=== PATIENT | male | born 1970 | race Caucasian/White ===

== ENCOUNTER → 2016-07-15 | Outpatient (CLI) | payer MEDICARE, BC ==
[2016-07-15 08:39] LABS: Basophils % (A) 0 %; CH 33.4; CHCM 33.5; Eosinophils # (A) 0.1 k/uL (0-0.7); Eosinophils % (A) 1 %; HCT 43.8 % (39.0-53.0); HGB 14.9 gm/dL (13.0-17.5); Luc # (Auto) 0.14; Luc % (Auto) 3; Lymphocytes # (A) 1.8 k/uL (1.0-4.8); Lymphocytes % (A) 40 %; MCV 100.1 fL (80.0-100.0); Macrocytosis Slight; Monocytes # (A) 0.3 k/uL (0-1.0); Monocytes % (A) 7 %; Neutrophils # (A) 2.3 k/uL (1.3-7.7); Neutrophils % (A) 49 %; RBC 4.37 m/uL (4.30-5.90); RDW 14.4 % (11.5-15.5); WBC 4.6 k/uL (3.8-10.6); WBC (Perox) 4.64
[2016-07-15 08:48] LABS: ALT 34 U/L (21-72); AST 39 U/L (17-59); Alkaline Phosphatase 178 U/L (38-126); Anion Gap 10 mmol/L; Blood Urea Nitrogen 9 mg/dL (9-20); Calcium 9.5 mg/dL (8.4-10.2); Carbon Dioxide 29 mmol/L (22-30); Chloride 104 mmol/L (98-107); Cholesterol 180 mg/dL (<200); Glucose 92 mg/dL (74-99); HDL Cholesterol 69 mg/dL (40-60); Non-African American GFR(MDRD) >60 (>60 ml/min/1.73 sqM); Potassium 4.6 mmol/L (3.5-5.1); Sodium 143 mmol/L (137-145); Total Bilirubin 0.6 mg/dL (0.2-1.3); Total Protein 8.3 g/dL (6.3-8.2); Triglycerides 182 mg/dL (<150)
[2016-07-17 14:45] LABS: LOG HIV Copies/mL <1.60 (<1.60)
== END | disposition home or self-care (01) ==
LOC: LABWHC1 08:02
PROVIDERS: ATTEND Internal Medicine Infectious Disease
DX: B20 Human immunodeficiency virus [HIV] disease (principal); R53.83 Other fatigue
CPT/HCPCS: 36415; 80053; 80061; 84443; 85025; 86360; 87536

== ENCOUNTER → 2016-11-28 | Outpatient (CLI) | payer MEDICARE, BC ==
[2016-11-28 10:43] LABS: Basophils # (A) 0.1 k/uL (0-0.2); Basophils % (A) 1 %; CHCM 33.3; Eosinophils # (A) 0.1 k/uL (0-0.7); Eosinophils % (A) 2 %; HCT 45.5 % (39.0-53.0); HDW 2.93; HGB 15.4 gm/dL (13.0-17.5); Luc % (Auto) 3; Lymphocytes # (A) 2.1 k/uL (1.0-4.8); Lymphocytes % (A) 31 %; MCH 33.5 pg (25.0-35.0); MCHC 33.7 g/dL (31.0-37.0); MCV 99.4 fL (80.0-100.0); Mean Platelet Volume 6.9; Monocytes # (A) 0.5 k/uL (0-1.0); Monocytes % (A) 7 %; Neutrophils # (A) 3.9 k/uL (1.3-7.7); Neutrophils % (A) 57 %; RBC 4.58 m/uL (4.30-5.90); RDW 14.1 % (11.5-15.5); WBC 6.8 k/uL (3.8-10.6); WBC (Perox) 6.53
[2016-11-28 12:31] LABS: ALT 45 U/L (21-72); AST 36 U/L (17-59); Alkaline Phosphatase 176 U/L (38-126); Anion Gap 10 mmol/L; Blood Urea Nitrogen 8 mg/dL (9-20); Calcium 9.6 mg/dL (8.4-10.2); Carbon Dioxide 27 mmol/L (22-30); Chloride 106 mmol/L (98-107); Glucose 69 mg/dL (74-99); Non-African American GFR(MDRD) >60 (>60 ml/min/1.73 sqM); Potassium 4.8 mmol/L (3.5-5.1); Sodium 143 mmol/L (137-145); Total Bilirubin 0.3 mg/dL (0.2-1.3); Total Protein 7.8 g/dL (6.3-8.2)
[2016-11-28 12:56] LABS: Prostate Specific Antigen 3.61 ng/mL (0.00-4.00)
[2016-12-02 17:26] LABS: LOG HIV Copies/mL <1.60 (<1.60)
== END | disposition home or self-care (01) ==
LOC: LABWHC1 10:02
PROVIDERS: ATTEND Internal Medicine Infectious Disease
DX: B20 Human immunodeficiency virus [HIV] disease (principal); N40.1 Benign prostatic hyperplasia with lower urinary tract symptoms
CPT/HCPCS: 36415; 80053; 84153; 85025; 86360; 87536

== ENCOUNTER → 2017-04-28 | Outpatient (CLI) | payer MEDICARE, BC ==
[2017-04-28 11:21] LABS: ALT 36 U/L (21-72); AST 35 U/L (17-59); Albumin 4.7 g/dL (3.5-5.0); Alkaline Phosphatase 202 U/L (38-126); Anion Gap 13 mmol/L; Blood Urea Nitrogen 7 mg/dL (9-20); Calcium 10.1 mg/dL (8.4-10.2); Carbon Dioxide 28 mmol/L (22-30); Chloride 105 mmol/L (98-107); Glucose 93 mg/dL (74-99); Potassium 4.9 mmol/L (3.5-5.1); Sodium 146 mmol/L (137-145); Total Bilirubin 0.3 mg/dL (0.2-1.3); Total Protein 8.2 g/dL (6.3-8.2)
[2017-04-28 11:31] LABS: Basophils % (A) 1 %; Eosinophils # (A) 0.1 k/uL (0-0.7); Eosinophils % (A) 1 %; HCT 45.1 % (39.0-53.0); HGB 14.8 gm/dL (13.0-17.5); Lymphocytes # (A) 1.9 k/uL (1.0-4.8); Lymphocytes % (A) 24 %; MCH 32.9 pg (25.0-35.0); MCHC 32.9 g/dL (31.0-37.0); MCV 100.1 fL (80.0-100.0); Macrocytosis Slight; Mean Platelet Volume 6.8; Monocytes # (A) 0.4 k/uL (0-1.0); Monocytes % (A) 5 %; Neutrophils # (A) 5.5 k/uL (1.3-7.7); Neutrophils % (A) 68 %; Platelet Count 393 k/uL (150-450); RBC 4.51 m/uL (4.30-5.90); WBC 8.1 k/uL (3.8-10.6)
[2017-04-29 10:41] LABS: T4/T8 Ratio (CD4:CD8) 0.8 (1.0-3.7)
[2017-04-29 13:49] LABS: HIV-1 RNA Not detected (Not detected); HIV-1 RNA, Quant <40 Copies/mL (<40)
== END | disposition home or self-care (01) ==
LOC: LABWHC1 10:48
PROVIDERS: ATTEND Internal Medicine Infectious Disease
DX: B20 Human immunodeficiency virus [HIV] disease (principal)
CPT/HCPCS: 36415; 80053; 85025; 86360; 87536

== ENCOUNTER → 2017-10-27 | Outpatient (CLI) | payer MEDICARE, BC ==
[2017-10-27 09:38] LABS: ALT 55 U/L (21-72); AST 50 U/L (17-59); Albumin 4.2 g/dL (3.5-5.0); Alkaline Phosphatase 149 U/L (38-126); Anion Gap 5 mmol/L; Blood Urea Nitrogen 10 mg/dL (9-20); Calcium 9.4 mg/dL (8.4-10.2); Carbon Dioxide 28 mmol/L (22-30); Chloride 106 mmol/L (98-107); Glucose 92 mg/dL (74-99); Potassium 4.6 mmol/L (3.5-5.1); Sodium 139 mmol/L (137-145); Total Bilirubin 0.3 mg/dL (0.2-1.3); Total Protein 7.3 g/dL (6.3-8.2)
[2017-10-27 10:21] LABS: Basophils % (A) 0 %; Eosinophils # (A) 0.1 k/uL (0-0.7); Eosinophils % (A) 1 %; HCT 43.7 % (39.0-53.0); HGB 14.7 gm/dL (13.0-17.5); Lymphocytes # (A) 1.7 k/uL (1.0-4.8); Lymphocytes % (A) 20 %; MCH 34.2 pg (25.0-35.0); MCHC 33.6 g/dL (31.0-37.0); MCV 101.8 fL (80.0-100.0); Macrocytosis Slight; Mean Platelet Volume 7.7; Monocytes # (A) 0.5 k/uL (0-1.0); Monocytes % (A) 6 %; Neutrophils % (A) 72 %; Platelet Count 250 k/uL (150-450); RBC 4.29 m/uL (4.30-5.90); RDW 13.2 % (11.5-15.5); WBC 8.4 k/uL (3.8-10.6)
[2017-10-28 10:34] LABS: T4/T8 Ratio (CD4:CD8) 0.5 (1.0-3.7)
[2017-10-30 08:48] LABS: HIV-1 RNA Not detected (Not detected); HIV-1 RNA, Quant <40 Copies/mL (<40)
== END | disposition home or self-care (01) ==
LOC: LABWHC1 08:56
PROVIDERS: ATTEND Internal Medicine Infectious Disease
DX: B20 Human immunodeficiency virus [HIV] disease (principal)
CPT/HCPCS: 36415; 80053; 85025; 86360; 87536

== ENCOUNTER → 2018-04-20 | Outpatient (CLI) | payer MEDICARE, BC ==
[2018-04-20 08:45] LABS: Basophils # (A) 0.1 k/uL (0-0.2); Basophils % (A) 1 %; Eosinophils # (A) 0.3 k/uL (0-0.7); Eosinophils % (A) 4 %; HCT 44.3 % (39.0-53.0); HGB 15.1 gm/dL (13.0-17.5); Lymphocytes # (A) 2.3 k/uL (1.0-4.8); Lymphocytes % (A) 37 %; MCH 34.5 pg (25.0-35.0); MCV 101.6 fL (80.0-100.0); Macrocytosis Slight; Mean Platelet Volume 7.6; Monocytes # (A) 0.4 k/uL (0-1.0); Monocytes % (A) 6 %; Neutrophils # (A) 3.1 k/uL (1.3-7.7); Neutrophils % (A) 50 %; Platelet Count 249 k/uL (150-450); RBC 4.36 m/uL (4.30-5.90); RDW 12.9 % (11.5-15.5); WBC 6.3 k/uL (3.8-10.6)
[2018-04-20 17:38] LABS: Albumin 4.5 g/dL (3.80-4.90); Albumin/Globulin Ratio 1.8 (1.20-2.10); Anion Gap 8.8 mmol/L (4.00-12.00); Calcium 9.3 mg/dL (8.7-10.3); Carbon Dioxide 28.2 mmol/L (21.6-31.8); Globulin 2.5 g/dL (1.6-3.3); Potassium 4.4 mmol/L (3.5-5.5); Total Bilirubin 0.3 mg/dL (0.2-1.2)
[2018-04-21 10:38] LABS: T4/T8 Ratio (CD4:CD8) 0.7 (1.0-3.7)
[2018-04-22 16:56] LABS: HIV-1 RNA Not detected (Not detected); HIV-1 RNA, Quant <40 Copies/mL (<40)
== END ==
LOC: LABWHC1 07:51
PROVIDERS: ATTEND Internal Medicine Infectious Disease
DX: B20 Human immunodeficiency virus [HIV] disease (principal)
CPT/HCPCS: 36415; 80053; 85025; 86360; 87536

== ENCOUNTER → 2018-11-05 | Outpatient (CLI) | payer MEDICARE, BC ==
[2018-11-05 11:01] LABS: Basophils % (A) 0 %; Eosinophils # (A) 0.2 k/uL (0-0.7); Eosinophils % (A) 2 %; HCT 44.2 % (39.0-53.0); HGB 14.1 gm/dL (13.0-17.5); Lymphocytes % (A) 23 %; MCH 32.1 pg (25.0-35.0); MCHC 31.9 g/dL (31.0-37.0); MCV 100.9 fL (80.0-100.0); Macrocytosis Slight; Monocytes # (A) 0.4 k/uL (0-1.0); Monocytes % (A) 5 %; Neutrophils # (A) 5.9 k/uL (1.3-7.7); Neutrophils % (A) 68 %; Platelet Count 363 k/uL (150-450); RBC 4.39 m/uL (4.30-5.90); RDW 13.4 % (11.5-15.5); WBC 8.6 k/uL (3.8-10.6)
[2018-11-05 16:13] LABS: African American GFR (CKD) 120.7 (60.0-200.0); Albumin 4.2 g/dL (3.80-4.90); Albumin/Globulin Ratio 1.45 (1.60-3.17); Anion Gap 9.6 mmol/L (4.00-12.00); BUN/Creat Ratio 8.75 Ratio (12.00-20.00); Calcium 9.3 mg/dL (8.7-10.3); Carbon Dioxide 25.4 mmol/L (21.6-31.8); Globulin 2.9 g/dL (1.6-3.3); Non-African American GFR(CKD) 104.2 (60.0-200.0); Potassium 4.5 mmol/L (3.5-5.5); Total Bilirubin 0.2 mg/dL (0.3-1.2); Total Protein 7.1 g/dL (6.2-8.2)
[2018-11-06 10:55] LABS: T4/T8 Ratio (CD4:CD8) 0.6 (1.0-3.7)
[2018-11-09 15:54] LABS: HIV-1 RNA Not detected (Not detected); HIV-1 RNA, Quant <40 Copies/mL (<40)
== END | disposition home or self-care (01) ==
LOC: LABWHC1 10:03
PROVIDERS: ATTEND Internal Medicine Infectious Disease
DX: B20 Human immunodeficiency virus [HIV] disease (principal)
CPT/HCPCS: 36415; 80053; 85025; 86360; 87536

== ENCOUNTER 2019-03-16 19:08 | Emergency (ER) | payer MEDICARE, BC ==
[2019-03-16] MEDS ORDERED: HYDROmorphone 0.5 MG/0.5 ML SYRINGE IVP STA (19:19)
[2019-03-16 20:05] LABS: African American GFR (CKD) >90 (>60 ml/min/1.73 sqM); Anion Gap 11 mmol/L; Blood Urea Nitrogen 18 mg/dL (9-20); Calcium 9.8 mg/dL (8.4-10.2); Carbon Dioxide 22 mmol/L (22-30); Chloride 107 mmol/L (98-107); Glucose 110 mg/dL (74-99); Non-African American GFR(CKD) >90 (>60 ml/min/1.73 sqM); Sodium 140 mmol/L (137-145)
--- NOTE | 2019-03-16 20:06 | XR ---
PROCEDURE: XR lumbar spine - 3V DATE AND TIME: 03/16/2019 7:29 PM CLINICAL INDICATION: Pain after fall TECHNIQUE: Department protocol COMPARISON: None FINDINGS: There is no fracture or malalignment. [id number] lumbar spondylosis changes noted. Th e soft tissues are unremarkable. IMPRESSION: No acute radiographic process.
--- NOTE | 2019-03-16 20:17 | ED ---
General Adult HPI - General Chief complaint: Fall Stated complaint: back injury Time Seen by Provider: 03/16/19 19:15 Source: patient Mode of arrival: wheelchair Limitations: no limitations - History of Present Illness Initial comments: 49-year-old presents today for chief complaint of fall with left flank pain. Patient states that he was at work carrying approximately 50 pounds of goods when he felt after tripping hitting his left side of his back on a pallet. Patient states he has pain at the top of the left pelvis and of the low back. Patient denies any loss of bowel bladder control urinary retention loss of sensation or radiation of the pain down the left leg. Patient states his bilateral hip prosthesis. Patient denies any pain at the knee he states he is able to weight-bear and ambulate without difficulty however this increases the pain in the low back. Patient denies any right-sided back pain. She denies any loss of consciousness injury to the head and neck or upper back. Patient denies any numbness tingling of the lower extremities denies any other complaints or areas of injury. Patient denies any lacerations or abrasions. - Related Data Home Medications Medication Instructions Recorded Confirmed ALPRAZolam [Xanax] 0.25 mg PO TID PRN 06/17/15 03/12/17 Carisoprodol [Soma] 350 mg PO TID 06/17/15 03/12/17 Diclofenac Sodium [Voltaren] 75 mg PO BID 06/17/15 03/12/17 Emtricitabine [Emtriva] 200 mg PO DAILY 06/17/15 03/12/17 HYDROcodone/APAP 10-325MG [[place] 1 tab PO Q8HR PRN 06/17/15 03/12/17 10-325] Montelukast [Singulair] 10 mg PO HS 06/17/15 03/12/17 Nevirapine [Nevirapine ER] 400 mg PO DAILY 06/17/15 03/12/17 Omeprazole 40 mg PO DAILY 06/17/15 03/12/17 Pravastatin Sodium 40 mg PO DAILY 06/17/15 03/12/17 Tenofovir Disoproxil Fumarate 300 mg PO DAILY 06/17/15 03/12/17 [Viread] Previous Rx's Medication Instructions Recorded Azithromycin [Zithromax Z-pack] 250 mg PO DIRECTED #6 tab 06/17/15 Cyclobenzaprine [Flexeril] 10 mg PO TID #12 tab 03/12/17 Baclofen 10 mg PO TID 5 Days #15 tab 03/16/19 Allergies Allergy/AdvReac Type Severity Reaction Status Date / Time Penicillins Allergy Rash/Hives Verified 03/16/19 19:13 Review of Systems ROS Statement: Those systems with pertinent positive or pertinent negative responses have been documented in the HPI. ROS Other: All systems not noted in ROS Statement are negative. Past Medical History Past Medical History: No Reported History Additional Past Medical History / Comment(s): HIV History of Any Multi-Drug Resistant Organisms: None Reported Past Surgical History: Joint Replacement, Orthopedic Surgery Additional Past Surgical History / Comment(s): bilateral hip replacements Past Psychological History: Anxiety, Depression Smoking Status: Current every day smoker Past Alcohol Use History: Occasional Past Drug Use History: None Reported General Exam - General Exam Comments Initial Comments: General: The patient is awake and alert, in no distress, and does not appear acutely ill. Eye: +3 mm pupils are equal, round and reactive to light, extra-ocular movements are intact. No nystagmus. There is normal conjunctiva bilaterally. No signs of icterus. Ears, nose, mouth and throat: There are moist mucous membranes and no oral lesions. Neck: The neck is supple, there is no tenderness or JVD. Cardiovascular: There is a regular rate and rhythm. No murmur, rub or gallop is appreciated. Respiratory: Lungs are clear to auscultation, respirations are non-labored, breath sounds are equal. No wheezes, stridor, rales, or rhonchi. Gastrointestinal: Soft, non-distended, non-tender abdomen without masses or organomegaly noted. There is no rebound or guarding present. No CVA tenderness. Musculoskeletal: Upon inspection of the lumbar spine there is erythema of the left paravertebral soft tissues with superficial abrasion and small amount of ecchymosis. Normal ROM of the hips b/l, able to weight bear and ambulate. Strength 5/5. Sensation intact of the LE b/l Tender to palpation of the paravertebral tissues, very mild midline tenderness to palpation of upper lumbar spine, no thoracic orcervical tenderness. Tenderness of the posterior iliac crest . DP pulses equal bilaterally 2+. Neurological: A&O x 3. CN II-XII intact grossly, There are no obvious motor or sensory deficits. Coordination appears grossly intact. Speech is normal. Skin: Skin is warm and dry and no rashes or lesions are noted. Psychiatric: Cooperative, appropriate mood & affect, normal judgment. Limitations: no limitations Course Vital Signs 03/16/19 03/16/19 19:10 22:13 Temperature 98.1 F 98.0 F Pulse Rate 116 H 97 Respiratory 18 16 Rate Blood Pressure 134/56 133/73 O2 Sat by Pulse 95 98 Oximetry Medical Decision Making - Medical Decision Making 48yo male presenting for left flank pain after a fall. CT abdomen and pelvis negative for acute process. There is no evidence of displacement of the bilateral hip prosthesis. Patient is able to weight-bear and ambulate. Patient has pain over the posterior iliac crests otherwise no tenderness to palpation of the length of the femur of the knee. Patient neurovascularly intact pain controlled in the emergency department patient states he is feeling much better and at this time after discussing case with attending provider I think the patient is stable for discharge with outpatient primary care follow-up. Patient is given a care plan and discharge at this time. - Lab Data Result diagrams: 03/16/19 19:44 Lab Results 03/16/19 Range/Units 19:44 Sodium 140 (137-145) mmol/L Potassium 4.0 (3.5-5.1) mmol/L Chloride 107 (98-107) mmol/L Carbon Dioxide 22 (22-30) mmol/L Anion Gap 11 mmol/L BUN 18 (9-20) mg/dL Creatinine 0.76 (0.66-1.25) mg/dL Est GFR (CKD-EPI)AfAm >90 (>60 ml/min/1.73 sqM) Est GFR (CKD-EPI)NonAf >90 (>60 ml/min/1.73 sqM) Glucose 110 H (74-99) mg/dL Calcium 9.8 (8.4-10.2) mg/dL Disposition Clinical Impression: Low back pain, Fall Disposition: HOME SELF-CARE Condition: Good Instructions (If sedation given, give patient instructions): Back Pain (ED) Prescriptions: Baclofen 10 mg PO TID 5 Days #15 tab Is patient prescribed a controlled substance at d/c from ED?: No Referrals: Navin Yun MD [Primary Care Provider] - 1-2 days Time of Disposition: 21:50
[2019-03-16] MEDS ORDERED: MORPHINE SULFATE 4 MG/ML SYRINGE IVP STA (21:39)
[2019-03-16] MEDS ORDERED: ONDANSETRON 4 MG/2 ML VIAL IVP STA (21:40)
--- NOTE | 2019-03-16 21:48 | CT ---
EXAMINATION TYPE: CT abdomen pelvis w con DATE OF EXAM: 03/16/2019 COMPARISON: None HISTORY: Left side flank pain after fall with 50lbs. CT DLP: 725.1 mGycm Automated exposure control for dose reduction was used. TECHNIQUE: Helical acquisition of images was performed from the lung bases through the pelvis. CONTRAST: Performed without Oral Contrast and with IV Contrast, patient injected with 100ml mL of Iso nathalie 300. FINDINGS: LUNG BASES: No significant abnormality is appreciated. LIVER/GB: No significant abnormality is appreciated. PANCREAS: No significant abnormality is seen. SPLEEN: No significant abnormality is seen. ADRENALS: No significant abnormality is seen. KIDNEYS: No hydronephrosis or calcification, and no other focal findings. The upper and lower collect ing systems are unremarkable. FREE AIR: No free air is visualized. No peritoneal fluid. RETROPERITONEAL ADENOPATHY: None visualized REPRODUCTIVE ORGANS: No significant abnormality is seen URINARY BLADDER: No significant abnormality is seen. PELVIC ADENOPATHY: None visualized. OSSEOUS STRUCTURES: No significant abnormality is seen. BOWEL: No significant abnormality is seen. Bowel obstruction. No diverticulitis. No herniation. OTHER: No acute vascular findings. IMPRESSION: NEGATIVE EXAMINATION.
[2019-03-16 22:19] VITALS: BP 133/73; PULSE 97; RESP 16; TEMP 98
== END 2019-03-16 22:19 | disposition home or self-care (01) ==
LOC: EC 19:08
DX: M54.5 Low back pain (principal); F41.9 Anxiety disorder, unspecified; F32.9 Major depressive disorder, single episode, unspecified; F17.200 Nicotine dependence, unspecified, uncomplicated; Z21 Asymptomatic human immunodeficiency virus [HIV] infection status; Z79.899 Other long term (current) drug therapy; Z88.0 Allergy status to penicillin; Z96.643 Presence of artificial hip joint, bilateral; W01.198A Fall on same level from slipping, tripping and stumbling with subsequent striking against other object, initial encounter
CPT/HCPCS: 36415; 80048; 72100; 74177; 99284; 96374; 96375 ×2; J2270; J2405; J1170; Q9967

== ENCOUNTER → 2019-05-07 | Outpatient (CLI) | payer MEDICARE, BC ==
--- NOTE | 2019-05-07 14:10 | XR ---
Lumbar spine HISTORY: Back pain 3 views of the lumbar spine correlated prior exam 03/16/2019 There is no significant interval change. Mild spinal curvature may be positional. There is mild spond ylosis. Minimal retrolisthesis grade 1 suspected L3-4. Loss of disc height at intervertebral levels L 3-4, L5-S1. Sclerosis present in the posterior elements. Postop changes are noted to the hips. Questi on vacuum phenomenon L5-S1. IMPRESSION: Degenerative disc disease and facet arthropathy.
--- NOTE | 2019-05-07 14:15 | XR ---
AP pelvis and right hip HISTORY: Lump, palpable mass right lateral hip, chronic back pain Frontal view of the pelvis submitted, 2 views of the right hip Patient is status post bilateral hip arthroplasties. Extensive heterotopic new bone formation is pres ent about the right hip. Lucency is present about the acetabular component. Vascular calcifications a re noted incidentally. Alignment is maintained. No acute fracture or dislocation. IMPRESSION: Heterotopic new bone formation may be related to patient's palpable abnormality. Postop suellen kelley. Correlate for possible right hip loosening, particle disease
== END | disposition home or self-care (01) ==
LOC: RADXRMAIN 10:14
PROVIDERS: ATTEND Chiropractor
DX: M51.36 Other intervertebral disc degeneration, lumbar region (principal); M46.96 Unspecified inflammatory spondylopathy, lumbar region; M61.552 Other ossification of muscle, left thigh; Z98.890 Other specified postprocedural states
CPT/HCPCS: 72100; 72170; 73502

== ENCOUNTER → 2019-06-04 | Outpatient (CLI) | payer MEDICARE, BC ==
[2019-06-04 10:37] LABS: Basophils % (A) 0 %; Eosinophils # (A) 0.3 k/uL (0-0.7); Eosinophils % (A) 3 %; HCT 43.7 % (39.0-53.0); HGB 14.8 gm/dL (13.0-17.5); Lymphocytes # (A) 2.5 k/uL (1.0-4.8); Lymphocytes % (A) 30 %; MCH 33.5 pg (25.0-35.0); MCHC 33.9 g/dL (31.0-37.0); MCV 98.8 fL (80.0-100.0); Mean Platelet Volume 7.6; Monocytes # (A) 0.4 k/uL (0-1.0); Monocytes % (A) 5 %; Neutrophils # (A) 4.9 k/uL (1.3-7.7); Neutrophils % (A) 59 %; Platelet Count 275 k/uL (150-450); RBC 4.43 m/uL (4.30-5.90); RDW 13.4 % (11.5-15.5); WBC 8.3 k/uL (3.8-10.6)
[2019-06-04 16:21] LABS: Albumin 4.9 g/dL (3.80-4.90); Albumin/Globulin Ratio 1.69 (1.60-3.17); Anion Gap 5.4 mmol/L (4.00-12.00); BUN/Creat Ratio 13.33 Ratio (12.00-20.00); Calcium 9.6 mg/dL (8.7-10.3); Carbon Dioxide 26.6 mmol/L (21.6-31.8); Globulin 2.9 g/dL (1.6-3.3); Non-African American GFR(CKD) 99.2 (60.0-200.0); Potassium 4.8 mmol/L (3.5-5.5); Total Bilirubin 0.4 mg/dL (0.3-1.2); Total Protein 7.8 g/dL (6.2-8.2)
[2019-06-05 08:09] LABS: T4/T8 Ratio (CD4:CD8) 0.6 (1.0-3.7)
[2019-06-07 15:49] LABS: HIV-1 RNA DETECTED (Not detected); HIV-1 RNA, Quant <40 Copies/mL (<40)
== END | disposition home or self-care (01) ==
LOC: LABWHC1 09:55
PROVIDERS: ATTEND Internal Medicine Infectious Disease
DX: B20 Human immunodeficiency virus [HIV] disease (principal); Z88.0 Allergy status to penicillin; Z88.5 Allergy status to narcotic agent
CPT/HCPCS: 36415; 80053; 85025; 86360; 87536

== ENCOUNTER 2019-07-10 17:25 | Emergency (ER) | payer MEDICARE, BC ==
[2019-07-10 17:29] VITALS: BP 165/92; PULSE 111; RESP 16; TEMP 98.2
--- NOTE | 2019-07-10 17:55 | ED ---
Upper Extremity HPI - General Chief Complaint: Extremity Injury, Upper Stated Complaint: hand injury Time Seen by Provider: 07/10/19 17:35 Source: patient, RN notes reviewed, old records reviewed Mode of arrival: ambulatory Limitations: no limitations - History of Present Illness Initial Comments: Patient's 49-year-old male presents emergency room today with left fifth digit injury after jumping from a truck bed landing on his left hand. Patient reports he initially thought it was a sprain but is having increasing pain over his fifth digit. He reports that the incident happened on Friday and waited till today Friday to come to the emergency department. His right-handed. - Related Data Home Medications Medication Instructions Recorded Confirmed ALPRAZolam [Xanax] 0.25 mg PO TID PRN 06/17/15 03/12/17 Carisoprodol [Soma] 350 mg PO TID 06/17/15 03/12/17 Diclofenac Sodium [Voltaren] 75 mg PO BID 06/17/15 03/12/17 Emtricitabine [Emtriva] 200 mg PO DAILY 06/17/15 03/12/17 HYDROcodone/APAP 10-325MG [[place] 1 tab PO Q8HR PRN 06/17/15 03/12/17 10-325] Montelukast [Singulair] 10 mg PO HS 06/17/15 03/12/17 Nevirapine [Nevirapine ER] 400 mg PO DAILY 06/17/15 03/12/17 Omeprazole 40 mg PO DAILY 06/17/15 03/12/17 Pravastatin Sodium 40 mg PO DAILY 06/17/15 03/12/17 Tenofovir Disoproxil Fumarate 300 mg PO DAILY 06/17/15 03/12/17 [Viread] Previous Rx's Medication Instructions Recorded Azithromycin [Zithromax Z-pack] 250 mg PO DIRECTED #6 tab 06/17/15 Cyclobenzaprine [Flexeril] 10 mg PO TID #12 tab 03/12/17 Baclofen 10 mg PO TID 5 Days #15 tab 03/16/19 Ibuprofen [Motrin] 600 mg PO Q8HR PRN #20 tab 07/10/19 Allergies Allergy/AdvReac Type Severity Reaction Status Date / Time Penicillins Allergy Rash/Hives Verified 07/10/19 17:29 Review of Systems ROS Statement: Those systems with pertinent positive or pertinent negative responses have been documented in the HPI. ROS Other: All systems not noted in ROS Statement are negative. Past Medical History Past Medical History: No Reported History Additional Past Medical History / Comment(s): HIV, History of Any Multi-Drug Resistant Organisms: None Reported Past Surgical History: Joint Replacement, Orthopedic Surgery Additional Past Surgical History / Comment(s): bilateral hip replacements, Past Psychological History: Anxiety, Depression Smoking Status: Current every day smoker Past Alcohol Use History: Occasional Past Drug Use History: None Reported General Exam - General Exam Comments Initial Comments: Patient is a 49-year-old male who presents emergency department today for evaluation for concern for left fifth digit injury. She reports that he jumped off of the truck bed and landed on his left hand. He has some bruising and swelling and pain with range of motion. An x-ray was completed and negative for any acute fracture. Discussed likely sprain. Patient was given a finger splint and advised to rest ice and elevate acute inflammatory mass or pain. Limitations: no limitations General appearance: alert, in no apparent distress Head exam: Present: atraumatic, normocephalic, normal inspection Eye exam: Present: normal appearance, PERRL, EOMI. Absent: scleral icterus, conjunctival injection, periorbital swelling ENT exam: Present: normal exam, mucous membranes moist Neck exam: Present: normal inspection. Absent: tenderness, meningismus, lymphadenopathy Respiratory exam: Present: normal lung sounds bilaterally. Absent: respiratory distress, wheezes, rales, rhonchi, stridor Cardiovascular Exam: Present: regular rate, normal rhythm, normal heart sounds. Absent: systolic murmur, diastolic murmur, rubs, gallop, clicks GI/Abdominal exam: Present: soft, normal bowel sounds. Absent: distended, tenderness, guarding, rebound, rigid Extremities exam: Present: normal inspection Left Elbow exam: Present: normal inspection, full ROM Forearm Wrist exam: Present: normal inspection, full ROM Hand Wrist exam: Present: tenderness, swelling (over 5th digit and PIP bruising noted. ). Absent: normal inspection Neuro motor exam: Present: wrist extension intact, thumb opposition intact, thumb IP flexion intact, thumb adduction intact, fingers 2-5 abduction intact Neurosensory exam: Present: 2-point discrimination, radial nerve intact, ulnar nerve intact, median nerve intact Vascular: Present: normal capillary refill Back exam: Present: normal inspection Neurological exam: Present: alert, oriented X3, CN II-XII intact Psychiatric exam: Present: normal affect, normal mood Skin exam: Present: warm, dry, intact, normal color. Absent: rash Course Vital Signs 07/10/19 17:26 Temperature 98.2 F Pulse Rate 111 H Respiratory 16 Rate Blood Pressure 165/92 O2 Sat by Pulse 99 Oximetry Procedures - Orthopedic Splinting/Casting Injury #1 Side: left (5th digit) Upper Extremity Immobilizer: aluminum form splint, jimmy tape Medical Decision Making - Medical Decision Making 49-year-old male presents emergency room today with left fifth digit injury that occurred on when he was jumping off of a truck bed and landed on his left hand. He has some bruising and swelling into the PIP of the fifth digit. He has normal sensation and does have full range of motion with pain with range of motion. X-rays completed no evidence of fracture. Patient was placed in a aluminum finger splint and jimmy taped with the fourth digit. Advised Patient to assess and elevate the hand. Patient was given Motrin starter pack and anti- inflammatory medication sent to pharmacy. - Radiology Data Radiology results: report reviewed Normal hand x-ray. Disposition Clinical Impression: Finger sprain Disposition: HOME SELF-CARE Condition: Good Instructions (If sedation given, give patient instructions): Finger Sprain (ED) Additional Instructions: Patient can use the aluminum splint and jimmy tape for the next week periodically to help with a sprain. Patient should ice the finger and hand. Take Motrin and Tylenol for pain. Prescriptions: Ibuprofen [Motrin] 600 mg PO Q8HR PRN #20 tab PRN Reason: Pain Is patient prescribed a controlled substance at d/c from ED?: No Referrals: None,Stated [Primary Care Provider] - 1-2 days Time of Disposition: 18:28
--- NOTE | 2019-07-10 18:25 | XR ---
EXAMINATION TYPE: XR hand complete LT DATE OF EXAM: 07/10/2019 COMPARISON: NONE HISTORY: Pain after a fall TECHNIQUE: 3 views FINDINGS: Metacarpals appear intact. I see no fracture nor dislocation. Joint spaces are fairly meron l. There are no erosions. There is slight narrowing of the radiocarpal joint space. There is slight deformity of the distal radius and ulna probably due to old healed fracture. Multiple axial sections were obtained from the diaphragm to the floor the pelvis with intravenous contrast Om nipaque 100 mL. FINDINGS: IMPRESSION: No acute abnormality of the left hand. No fracture.
== END 2019-07-10 18:40 | disposition home or self-care (01) ==
LOC: EC 17:25
DX: S63.617A Unspecified sprain of left little finger, initial encounter (principal); B20 Human immunodeficiency virus [HIV] disease; F17.200 Nicotine dependence, unspecified, uncomplicated; Z88.0 Allergy status to penicillin; Z79.1 Long term (current) use of non-steroidal anti-inflammatories (NSAID); Z79.899 Other long term (current) drug therapy; Z96.643 Presence of artificial hip joint, bilateral; W17.89XA Other fall from one level to another, initial encounter; Y93.89 Activity, other specified
CPT/HCPCS: 99284

== ENCOUNTER 2019-07-25 20:17 | Emergency (ER) | payer MEDICARE, BC ==
[2019-07-25 21:07] VITALS: RESP 16
[2019-07-25] MEDS ORDERED: SODIUM CHLORIDE 0.9% 1,000 ML IV STA (21:24)
[2019-07-25 21:49] LABS: Appearance,Urine Clear (Clear); Bilirubin,Urine Negative (Negative); Blood,Urine Negative (Negative); Color,Urine Colorless; Glucose,Urine (UA) Negative (Negative); Ketones,Urine Negative (Negative); Leukocyte Esterase,Urine Negative (Negative); Nitrite,Urine Negative (Negative); PH, Urine 5.5 (5.0-8.0); Protein,Urine Negative (Negative); Specific Gravity,Urine 1.002 (1.001-1.035); Urobilinogen,Urine <2.0 mg/dL (<2.0)
[2019-07-25 21:49] LABS: Basophils % (A) 0 %; Eosinophils # (A) 0.3 k/uL (0-0.7); Eosinophils % (A) 3 %; HGB 14.3 gm/dL (13.0-17.5); Lymphocytes # (A) 2.7 k/uL (1.0-4.8); Lymphocytes % (A) 29 %; MCV 100.2 fL (80.0-100.0); Mean Platelet Volume 7.6; Monocytes # (A) 0.5 k/uL (0-1.0); Monocytes % (A) 5 %; Neutrophils # (A) 5.8 k/uL (1.3-7.7); Neutrophils % (A) 62 %; Platelet Count 327 k/uL (150-450); RBC 4.19 m/uL (4.30-5.90); RDW 13.6 % (11.5-15.5); WBC 9.4 k/uL (3.8-10.6)
[2019-07-25 22:04] LABS: ALT 17 U/L (4-49); AST 29 U/L (17-59); African American GFR (CKD) >90 (>60 ml/min/1.73 sqM); Albumin 4.7 g/dL (3.5-5.0); Alkaline Phosphatase 167 U/L (38-126); Anion Gap 13 mmol/L; Blood Urea Nitrogen 8 mg/dL (9-20); Calcium 9.7 mg/dL (8.4-10.2); Carbon Dioxide 20 mmol/L (22-30); Chloride 108 mmol/L (98-107); Glucose 79 mg/dL (74-99); Magnesium 2.1 mg/dL (1.6-2.3); Non-African American GFR(CKD) >90 (>60 ml/min/1.73 sqM); Potassium 4.2 mmol/L (3.5-5.1); Sodium 141 mmol/L (137-145); Total Bilirubin 0.2 mg/dL (0.2-1.3); Total Protein 8.3 g/dL (6.3-8.2)
--- NOTE | 2019-07-25 22:11 | ED ---
General Adult HPI - General Source: patient Mode of arrival: ambulatory Limitations: no limitations <Neema Sumner - Last Filed: 07/26/19 00:49> <Ashley Tripp - Last Filed: 07/26/19 23:25> - General Chief complaint: Dizziness Stated complaint: Dizziness Time Seen by Provider: 07/25/19 20:30 - History of Present Illness Initial comments: 49-year-old male patient presents to the emergency department today for evaluation of tingling to his hands and feet. He is also reporting feeling unsteady on his feet. States symptoms of a going on for the last month. Patient states it feels the symptoms are worsening. Patient does have a history of HIV, has been on the same medication regimen for the last couple of months. He denies any other medications. Denies dizziness, unilateral weakness, chest pain, shortness of breath, nausea, vomiting, constipation, or diarrhea. Patient denies any recent rash, fever, chills, cough, abdominal pain, constipation, back pain, hematuria, dysuria, urinary urgency, urinary frequency, headache, visual changes, or any other complaints. (Neema Sumner) - Related Data Home Medications Medication Instructions Recorded Confirmed ALPRAZolam [Xanax] 0.25 mg PO TID PRN 06/17/15 07/25/19 Diclofenac Sodium [Voltaren] 75 mg PO BID 06/17/15 07/25/19 Emtricitabine [Emtriva] 200 mg PO DAILY 06/17/15 07/25/19 Nevirapine [Nevirapine ER] 400 mg PO HS 06/17/15 07/25/19 Omeprazole 40 mg PO DAILY 06/17/15 07/25/19 Pravastatin Sodium 40 mg PO DAILY 06/17/15 07/25/19 Nevirapine [Nevirapine ER] 400 mg PO HS 07/25/19 07/25/19 Nevirapine [Viramune] 200 mg PO DAILY 07/25/19 07/25/19 Allergies Allergy/AdvReac Type Severity Reaction Status Date / Time Penicillins Allergy Rash/Hives Verified 07/25/19 22:34 Review of Systems ROS Other: All systems not noted in ROS Statement are negative. <Neema Sumner - Last Filed: 07/26/19 00:49> ROS Other: All systems not noted in ROS Statement are negative. <Ashley Tripp Martha - Last Filed: 07/26/19 23:25> ROS Statement: Those systems with pertinent positive or pertinent negative responses have been documented in the HPI. Past Medical History Past Medical History: No Reported History Additional Past Medical History / Comment(s): HIV, History of Any Multi-Drug Resistant Organisms: None Reported Past Surgical History: Joint Replacement, Orthopedic Surgery Additional Past Surgical History / Comment(s): bilateral hip replacements, Past Psychological History: Anxiety, Depression Smoking Status: Current every day smoker Past Alcohol Use History: Occasional Past Drug Use History: None Reported <Neema Sumner - Last Filed: 07/26/19 00:49> General Exam Limitations: no limitations General appearance: alert, in no apparent distress, other (Physical well-developed, well-nourished adult male patient in no acute distress. Vital signs upon presentation are temperature 98.0F, pulse 1:15, respirations 20, blood pressure 160/81, pulse ox 98% on room air.) Eye exam: Present: normal appearance, PERRL, EOMI. Absent: scleral icterus, conjunctival injection, periorbital swelling ENT exam: Present: normal exam, normal oropharynx, mucous membranes moist Respiratory exam: Present: normal lung sounds bilaterally. Absent: respiratory distress, wheezes, rales, rhonchi, stridor Cardiovascular Exam: Present: regular rate, normal rhythm, normal heart sounds. Absent: systolic murmur, diastolic murmur, rubs, gallop, clicks GI/Abdominal exam: Present: soft, normal bowel sounds. Absent: distended, tenderness, guarding, rebound, rigid Neurological exam: Present: alert, oriented X3, CN II-XII intact Psychiatric exam: Present: normal affect, normal mood Skin exam: Present: warm, dry, intact, normal color. Absent: rash <Neema Sumner - Last Filed: 07/26/19 00:49> Course Vital Signs 07/25/19 07/25/19 07/25/19 20:22 21:00 22:00 Temperature 98.0 F Pulse Rate 115 H 95 89 Respiratory 20 16 16 Rate Blood Pressure 160/81 119/75 133/75 O2 Sat by Pulse 98 96 96 Oximetry 07/25/19 07/25/19 23:00 23:32 Temperature 98.7 F Pulse Rate 86 88 Respiratory 16 16 Rate Blood Pressure 125/77 132/80 O2 Sat by Pulse 97 94 L Oximetry EKG Findings - EKG Comments: EKG Findings:: EKG obtained at 2030 shows normal sinus rhythm with ventricular rate of 98, OK interval 134, QRS duration 94, QT 344, QTC 439. No evidence of ST elevation or depression. <Neema Sumner - Last Filed: 07/26/19 00:49> Medical Decision Making - Lab Data Result diagrams: 07/25/19 20:39 07/25/19 20:39 <Neema Sumner - Last Filed: 07/26/19 00:49> - Lab Data Result diagrams: 07/25/19 20:39 07/25/19 20:39 <Ashley Tripp - Last Filed: 07/26/19 23:25> - Medical Decision Making 49-year-old male patient with past medical history significant for HIV presents to the emergency department today for evaluation of paresthesia to the hands and feet. He is also reporting feeling unsteady on his feet. Physical examination is unremarkable. He is neurologically intact no focal deficits. No concerning symptoms for cauda equina. Labs reviewed and are unremarkable. Vitamin B12 is pending. EKG was unremarkable. We discharge follow up with his primary care physician for recheck in 1-2 days. Return parameters discussed in detail. He verbalizes understanding and agrees with this plan. (Neema Sumner) I was available for consultation in the emergency department. The history and physical exam were done by the midlevel provider. I was consulted for this patients care. I reviewed the case with the midlevel provider and based on their presentation of the patient, I agree with the assessment, medical decision making and plan of care as documented. Chart was dictated using [employer] dictation software. Attempts were made to correct any dictation errors however some typographical errors may persist. Patient was seen during a national state of emergency due to the Covid-19 pandemic. (Ashley Tripp) - Lab Data Lab Results 07/25/19 07/25/19 07/25/19 Range/Units 20:39 20:39 20:39 WBC 9.4 (3.8-10.6) k/uL RBC 4.19 L (4.30-5.90) m/uL Hgb 14.3 (13.0-17.5) gm/dL Hct 42.0 (39.0-53.0) % MCV 100.2 H (80.0-100.0) fL MCH 34.0 (25.0-35.0) pg MCHC 34.0 (31.0-37.0) g/dL RDW 13.6 (11.5-15.5) % Plt Count 327 (150-450) k/uL Neutrophils % 62 % Lymphocytes % 29 % Monocytes % 5 % Eosinophils % 3 % Basophils % 0 % Neutrophils # 5.8 (1.3-7.7) k/uL Lymphocytes # 2.7 (1.0-4.8) k/uL Monocytes # 0.5 (0-1.0) k/uL Eosinophils # 0.3 (0-0.7) k/uL Basophils # 0.0 (0-0.2) k/uL Sodium 141 (137-145) mmol/L Potassium 4.2 (3.5-5.1) mmol/L Chloride 108 H (98-107) mmol/L Carbon Dioxide 20 L (22-30) mmol/L Anion Gap 13 mmol/L BUN 8 L (9-20) mg/dL Creatinine 0.78 (0.66-1.25) mg/dL Est GFR (CKD-EPI)AfAm >90 (>60 ml/min/1.73 sqM) Est GFR (CKD-EPI)NonAf >90 (>60 ml/min/1.73 sqM) Glucose 79 (74-99) mg/dL Calcium 9.7 (8.4-10.2) mg/dL Magnesium 2.1 (1.6-2.3) mg/dL Total Bilirubin 0.2 (0.2-1.3) mg/dL AST 29 (17-59) U/L ALT 17 (4-49) U/L Alkaline Phosphatase 167 H (38-126) U/L Total Protein 8.3 H (6.3-8.2) g/dL Albumin 4.7 (3.5-5.0) g/dL Vitamin B12 310.0 (200.0-944.0) pg/mL Urine Color Urine Appearance (Clear) Urine pH (5.0-8.0) Ur Specific [place] (1.001-1.035) Urine Protein (Negative) Urine Glucose (UA) (Negative) Urine Ketones (Negative) Urine Blood (Negative) Urine Nitrite (Negative) Urine Bilirubin (Negative) Urine Urobilinogen (<2.0) mg/dL Ur Leukocyte Esterase (Negative) 07/25/19 Range/Units 21:29 WBC (3.8-10.6) k/uL RBC (4.30-5.90) m/uL Hgb (13.0-17.5) gm/dL Hct (39.0-53.0) % MCV (80.0-100.0) fL MCH (25.0-35.0) pg MCHC (31.0-37.0) g/dL RDW (11.5-15.5) % Plt Count (150-450) k/uL Neutrophils % % Lymphocytes % % Monocytes % % Eosinophils % % Basophils % % Neutrophils # (1.3-7.7) k/uL Lymphocytes # (1.0-4.8) k/uL Monocytes # (0-1.0) k/uL Eosinophils # (0-0.7) k/uL Basophils # (0-0.2) k/uL Sodium (137-145) mmol/L Potassium (3.5-5.1) mmol/L Chloride (98-107) mmol/L Carbon Dioxide (22-30) mmol/L Anion Gap mmol/L BUN (9-20) mg/dL Creatinine (0.66-1.25) mg/dL Est GFR (CKD-EPI)AfAm (>60 ml/min/1.73 sqM) Est GFR (CKD-EPI)NonAf (>60 ml/min/1.73 sqM) Glucose (74-99) mg/dL Calcium (8.4-10.2) mg/dL Magnesium (1.6-2.3) mg/dL Total Bilirubin (0.2-1.3) mg/dL AST (17-59) U/L ALT (4-49) U/L Alkaline Phosphatase (38-126) U/L Total Protein (6.3-8.2) g/dL Albumin (3.5-5.0) g/dL Vitamin B12 (200.0-944.0) pg/mL Urine Color Colorless Urine Appearance Clear (Clear) Urine pH 5.5 (5.0-8.0) Ur Specific [place] 1.002 (1.001-1.035) Urine Protein Negative (Negative) Urine Glucose (UA) Negative (Negative) Urine Ketones Negative (Negative) Urine Blood Negative (Negative) Urine Nitrite Negative (Negative) Urine Bilirubin Negative (Negative) Urine Urobilinogen <2.0 (<2.0) mg/dL Ur Leukocyte Esterase Negative (Negative) Disposition Is patient prescribed a controlled substance at d/c from ED?: No Time of Disposition: 23:20 <Neema Sumner - Last Filed: 07/26/19 00:49> <Ashley Tripp - Last Filed: 07/26/19 23:25> Clinical Impression: Paresthesia, Dizziness Disposition: HOME SELF-CARE Condition: Good Instructions (If sedation given, give patient instructions): Paresthesia (ED), Dizziness (ED) Additional Instructions: Awaiti pending labs. Follow-up with the primary care physician for recheck in 1-2 days. Return to the emergency department immediately for any new, worsening, or concerning symptoms Referrals: Navin Samuel MD [STAFF PHYSICIAN] - 1-2 days
[2019-07-25 23:33] VITALS: BP 132/80; PULSE 88; TEMP 98.7
== END 2019-07-25 23:34 | disposition home or self-care (01) ==
LOC: EC 20:17
DX: R42 Dizziness and giddiness (principal); R20.2 Paresthesia of skin; R26.81 Unsteadiness on feet; B20 Human immunodeficiency virus [HIV] disease; F17.200 Nicotine dependence, unspecified, uncomplicated; Z96.643 Presence of artificial hip joint, bilateral; Z79.1 Long term (current) use of non-steroidal anti-inflammatories (NSAID); Z79.899 Other long term (current) drug therapy; Z88.0 Allergy status to penicillin
CPT/HCPCS: 36415; 80053; 81003; 82607; 83735; 85025; 93005; 96360; 99284

== ENCOUNTER → 2019-10-27 | Outpatient (CLI) | payer MEDICARE, BC ==
[2019-10-27 11:13] LABS: Basophils % (A) 1 %; Eosinophils # (A) 0.2 k/uL (0-0.7); Eosinophils % (A) 3 %; HGB 14.9 gm/dL (13.0-17.5); Lymphocytes % (A) 31 %; MCH 34.6 pg (25.0-35.0); MCV 104.8 fL (80.0-100.0); Macrocytosis Slight; Monocytes # (A) 0.3 k/uL (0-1.0); Monocytes % (A) 5 %; Neutrophils # (A) 3.9 k/uL (1.3-7.7); Neutrophils % (A) 59 %; Platelet Count 247 k/uL (150-450); RDW 12.6 % (11.5-15.5); WBC 6.5 k/uL (3.8-10.6)
[2019-10-27 17:08] LABS: African American GFR (CKD) 119.9 (60.0-200.0); Anion Gap 6.1 mmol/L (4.00-12.00); Calcium 9.7 mg/dL (8.7-10.3); Carbon Dioxide 23.9 mmol/L (21.6-31.8); Non-African American GFR(CKD) 103.4 (60.0-200.0); Potassium 4.3 mmol/L (3.5-5.5)
[2019-10-28 12:57] LABS: T4/T8 Ratio (CD4:CD8) 0.7 (1.0-3.7)
[2019-10-29 17:58] LABS: HIV-1 RNA Not detected (Not detected); HIV-1 RNA, Quant <40 Copies/mL (<40)
== END | disposition home or self-care (01) ==
LOC: LABWHC1 10:28
PROVIDERS: ATTEND Internal Medicine Infectious Disease
DX: B20 Human immunodeficiency virus [HIV] disease (principal)
CPT/HCPCS: 36415; 80048; 82550; 85025; 86360; 87536

== ENCOUNTER → 2020-02-28 | Outpatient (CLI) | payer MEDICARE, BC ==
[2020-02-28 14:46] LABS: Basophils # (A) 0.1 k/uL (0-0.2); Basophils % (A) 1 %; Eosinophils # (A) 0.2 k/uL (0-0.7); Eosinophils % (A) 2 %; HCT 47.7 % (39.0-53.0); HGB 16.2 gm/dL (13.0-17.5); Lymphocytes # (A) 2.5 k/uL (1.0-4.8); Lymphocytes % (A) 26 %; MCH 33.9 pg (25.0-35.0); MCV 99.6 fL (80.0-100.0); Mean Platelet Volume 7.8; Monocytes # (A) 0.6 k/uL (0-1.0); Monocytes % (A) 6 %; Neutrophils # (A) 6.2 k/uL (1.3-7.7); Neutrophils % (A) 65 %; Platelet Count 270 k/uL (150-450); RBC 4.79 m/uL (4.30-5.90); RDW 12.3 % (11.5-15.5); WBC 9.7 k/uL (3.8-10.6)
[2020-02-28 18:28] LABS: African American GFR (CKD) 100.6 (60.0-200.0); Albumin 4.7 g/dL (3.80-4.90); Albumin/Globulin Ratio 1.74 (1.60-3.17); Globulin 2.7 g/dL (1.6-3.3); Non-African American GFR(CKD) 86.8 (60.0-200.0); Potassium 3.9 mmol/L (3.5-5.5); Total Bilirubin 0.5 mg/dL (0.3-1.2); Total Protein 7.4 g/dL (6.2-8.2)
[2020-02-29 12:06] LABS: T4/T8 Ratio (CD4:CD8) 0.7 (1.0-3.7)
[2020-02-29 15:26] LABS: HIV-1 RNA Not detected (Not detected); HIV-1 RNA, Quant <40 Copies/mL (<40)
== END | disposition home or self-care (01) ==
LOC: LABWHC1 10:34
PROVIDERS: ATTEND Internal Medicine Infectious Disease
DX: B20 Human immunodeficiency virus [HIV] disease (principal)
CPT/HCPCS: 36415; 80053; 85025; 86360; 87536

== ENCOUNTER → 2020-07-27 | Outpatient (CLI) | payer MEDICARE, BC ==
--- NOTE | 2020-07-27 16:39 | MR ---
EXAMINATION TYPE: MR lumbar spine wo con DATE OF EXAM: 07/27/2020 COMPARISON: Plain film 05/07/2019 HISTORY: Lower back pain for over a year. TECHNIQUE: Multiplanar, multisequence images of the lumbar spine were acquired. L1-L2: Posterior broad-based disc bulge causes only minimal anterior mass effect on the thecal sac. N o foraminal encroachment or spinal stenosis. L2-L3: Posterior broad-based disc bulge causes mild anterior mass effect on the thecal sac. There is some mild facet arthropathy. No significant spinal stenosis. L3-L4: Posterior broad-based disc bulge causes mild anterior mass effect on the thecal sac is eccentr ic towards the right, there is right-sided foraminal encroachment, mild anterolateral mass effect on the thecal sac. There is some facet arthropathy change. Lateral disc herniation appears broad-based t owards the right L4-L5: Posterior extension of endplate disc complex is somewhat eccentric towards the right and cause s some right-sided foraminal encroachment greater than left, there is mild anterior mass effect on th e thecal sac, lateral disc herniation. No significant spinal stenosis. There is some facet arthropath y change which is mild. L5-S1: Posterior disc bulge is minimal, there is no spinal stenosis. Circumferential extension endpla te disc complex encroaches somewhat on the neural foramen greater on the left than on the right. Face t arthropathy with hypertrophy ligamentum flavum is noted. Lumbar segments are intact. No paraspinal masses are identified. Conus medullaris has a normal appe arance. Lumbar vertebral bodies show preserved height and alignment. There is multilevel spondylosis with endplate discogenic marrow signal change. Loss of disc height signal is present at the intervert ebral levels consistent with disc desiccation and degenerative disc disease. There is mild spinal cur vature. Parapelvic cysts are suspected within the right kidney. IMPRESSION: Degenerative disc disease, facet arthropathy, altered level foraminal encroachment, lateral disc airam iation suspected L3-4, L4-5. There is a mild spinal curvature.
== END | disposition home or self-care (01) ==
LOC: RADMRIMAIN 14:50
PROVIDERS: ATTEND Internal Medicine
DX: M51.26 Other intervertebral disc displacement, lumbar region (principal); M51.36 Other intervertebral disc degeneration, lumbar region; M47.816 Spondylosis without myelopathy or radiculopathy, lumbar region; M43.8X6 Other specified deforming dorsopathies, lumbar region
CPT/HCPCS: 72148

== ENCOUNTER → 2020-08-16 | Outpatient (CLI) | payer MEDICARE, BC ==
--- NOTE | 2020-08-16 16:26 | CT ---
EXAMINATION TYPE: CT abdomen pelvis w con DATE OF EXAM: 08/16/2020 COMPARISON: 03/16/2019 INDICATION: epigastric/umbilical pain, diarrhea DLP: 474.4 mGycm, Automated exposure control for dose reduction was used. CONTRAST: 100 mL of Isovue 300. Study performed with Oral Contrast TECHNIQUE: Axial images were obtained from above the diaphragm to the pubic rami in the axial plane a t 5 mm thick sections. Reconstructed images are reviewed on the computer in the coronal plane. FINDINGS: Limited CT sections are obtained the lung bases. The lung bases are clear. CT ABDOMEN: Liver: Normal Spleen: Normal Pancreas: Normal Adrenal glands: The adrenal glands are normal. Gallbladder: Normal Kidneys: No masses are evident. No hydronephrosis is present. No cysts are present. Delayed images were obtained through the kidneys, which remain unremarkable. Aorta: Vascular calcification is within the aorta. Inferior vena cava: Normal. CT PELVIS: Loops of bowel extend into broad opening at the periumbilical region. No obstruction small bowel loops is evident. Loops of bowel within the abdomen and pelvis are normal. There are loops of bowel which are incom pletely distended or lack oral contrast limiting their evaluation. Appendix: Normal as visualized. Urinary bladder: Normal. There is limitation due to bilateral hip prosthesis beam hardening artifact. Genitourinary structures: Prostate is not well visualized Osseous structures: No suspicious lytic or sclerotic lesions. IMPRESSIONS: 1. Periumbilical hernia containing nondilated loops of bowel. No obstruction is evident.
== END | disposition home or self-care (01) ==
LOC: RADCTMAIN 12:41
PROVIDERS: ATTEND Internal Medicine
DX: K42.9 Umbilical hernia without obstruction or gangrene (principal)
CPT/HCPCS: 74177; Q9967

== ENCOUNTER → 2020-09-05 | Outpatient (CLI) | payer MEDICARE, BC ==
[2020-09-05 21:41] LABS: Basophils # (A) 0.03 X 10*3/uL (0.00-0.10); Basophils % (A) 0.3 %; Eosinophils # (A) 0.16 X 10*3/uL (0.04-0.35); Eosinophils % (A) 1.6 %; HCT 44.8 % (39.6-50.0); HGB 14.7 g/dL (13.0-17.0); Lymphocytes # (A) 2.53 X 10*3/uL (0.90-5.00); Lymphocytes % (A) 25.4 %; MCH 33.3 pg (27.0-32.0); MCHC 32.8 g/dL (32.0-37.0); MCV 101.4 fL (80.0-97.0); Mean Platelet Volume 10.9 fL (9.5-12.2); Monocytes # (A) 0.86 X 10*3/uL (0.20-1.00); Monocytes % (A) 8.6 %; Neutrophils # (A) 6.36 X 10*3/uL (1.80-7.70); Neutrophils % (A) 63.8 %; Platelet Count 281 X 10*3/uL (140-440); RBC 4.42 X 10*6/uL (4.40-5.60); RDW 13.2 % (11.5-14.5); WBC 9.97 X 10*3/uL (4.50-10.00)
[2020-09-05 22:13] LABS: Anion Gap 8.9 mmol/L (4.00-12.00); BUN/Creat Ratio 11.25 Ratio (12.00-20.00); Calcium 10.3 mg/dL (8.7-10.3); Carbon Dioxide 28.1 mmol/L (21.6-31.8); Non-African American GFR(CKD) 102.7 (60.0-200.0); Potassium 4.7 mmol/L (3.5-5.5)
[2020-09-06 09:55] LABS: T4/T8 Ratio (CD4:CD8) 0.5 (1.0-3.7)
[2020-09-07 20:22] LABS: HIV-1 RNA Not detected (Not detected); HIV-1 RNA, Quant <40 Copies/mL (<40)
== END | disposition home or self-care (01) ==
LOC: LABWHC1 12:23
PROVIDERS: ATTEND Internal Medicine Infectious Disease
DX: B20 Human immunodeficiency virus [HIV] disease (principal)
CPT/HCPCS: 36415; 80048; 84450; 84460; 85025; 86360; 87536

== ENCOUNTER 2020-09-30 03:37 | Emergency (ER) | payer MEDICARE, BC ==
[2020-09-30 03:46] VITALS: BP 127/79; PULSE 99; RESP 18; TEMP 97.9
--- NOTE | 2020-09-30 04:23 | ED ---
Fall HPI - General Chief Complaint: ENT Stated Complaint: Fall, nose injury Time Seen by Provider: 09/30/20 03:38 Source: patient, family, RN notes reviewed, old records reviewed Mode of arrival: wheelchair Limitations: no limitations - History of Present Illness Initial Comments: This is a 50-year-old male DF for evaluation patient Dese for evaluation of fall with nasal swelling. Patient complaining of nasal pain. Intoxicated, so poor story history obtained from family MD Complaint: fall -: minutes(s) Fall From: standing When Fall Occurred: 1 hour [employer] Fall Witnessed: yes, by family Place Fall Occurred: street Loss of Consciousness: none Prolonged Down Time?: no Symptoms Prior to Fall: none Location: face Severity: moderate Severity scale (1-10): 3 Quality: burning Context: tripped/slipped, alcohol use Associated Symptoms: denies - Related Data Home Medications Medication Instructions Recorded Confirmed ALPRAZolam [Xanax] 0.25 mg PO TID PRN 06/17/15 07/25/19 Diclofenac Sodium [Voltaren] 75 mg PO BID 06/17/15 07/25/19 Emtricitabine [Emtriva] 200 mg PO DAILY 06/17/15 07/25/19 Nevirapine [Nevirapine ER] 400 mg PO HS 06/17/15 07/25/19 Omeprazole 40 mg PO DAILY 06/17/15 07/25/19 Pravastatin Sodium 40 mg PO DAILY 06/17/15 07/25/19 Nevirapine [Nevirapine ER] 400 mg PO HS 07/25/19 07/25/19 Nevirapine [Viramune] 200 mg PO DAILY 07/25/19 07/25/19 Allergies Allergy/AdvReac Type Severity Reaction Status Date / Time Penicillins Allergy Rash/Hives Verified 09/30/20 03:42 Review of Systems ROS Statement: Those systems with pertinent positive or pertinent negative responses have been documented in the HPI. ROS Other: All systems not noted in ROS Statement are negative. Past Medical History Past Medical History: No Reported History Additional Past Medical History / Comment(s): HIV, neuropathy, tremors History of Any Multi-Drug Resistant Organisms: None Reported Past Surgical History: Joint Replacement, Orthopedic Surgery Additional Past Surgical History / Comment(s): bilateral hip replacements Past Psychological History: Anxiety Smoking Status: Current every day smoker Past Alcohol Use History: Occasional Past Drug Use History: None Reported General Exam Limitations: no limitations General appearance: alert, in no apparent distress Head exam: Present: normocephalic, normal inspection. Absent: atraumatic (Nasal deformity and swelling no septal hematoma) Eye exam: Present: normal appearance, PERRL, EOMI. Absent: scleral icterus, conjunctival injection, periorbital swelling ENT exam: Present: normal exam, mucous membranes moist Neck exam: Present: normal inspection. Absent: tenderness, meningismus, lymphadenopathy Respiratory exam: Present: normal lung sounds bilaterally. Absent: respiratory distress, wheezes, rales, rhonchi, stridor Cardiovascular Exam: Present: regular rate, normal rhythm, normal heart sounds. Absent: systolic murmur, diastolic murmur, rubs, gallop, clicks GI/Abdominal exam: Present: soft, normal bowel sounds. Absent: distended, tenderness, guarding, rebound, rigid Extremities exam: Present: normal inspection, full ROM, normal capillary refill. Absent: tenderness, pedal edema, joint swelling, calf tenderness Back exam: Present: normal inspection Neurological exam: Present: alert, oriented X3, CN II-XII intact Psychiatric exam: Present: normal affect, normal mood Skin exam: Present: warm, dry, intact, normal color. Absent: rash Course Vital Signs 09/30/20 03:42 Temperature 97.9 F Pulse Rate 99 Respiratory 18 Rate Blood Pressure 127/79 O2 Sat by Pulse 96 Oximetry - Reevaluation(s) Reevaluation #1: Medical record is reviewed Patient has improved symptoms here in the emergency department Patient's in no acute distress Patient informed results and questions answered Medical Decision Making - Medical Decision Making 50 male intoxicated found of nasal fracture. No other to medic injury noted. Patient can be discharged home - Radiology Data Radiology results: report reviewed (CT brain C-spine and facial bone does show nasal fracture), image reviewed Disposition Clinical Impression: Fall, Nasal fracture, Alcohol intoxication Disposition: HOME SELF-CARE Condition: Good Instructions (If sedation given, give patient instructions): Nasal Fracture (ED), Nosebleed (ED) Is patient prescribed a controlled substance at d/c from ED?: No Referrals: Robby Piedra MD [Primary Care Provider] - 1-2 days
--- NOTE | 2020-09-30 04:58 | CT ---
EXAMINATION TYPE: CT facial bones wo con DATE OF EXAM: 09/30/2020 COMPARISON: None HISTORY: Contusion. Nasal injury CT DLP: mGycm Automated exposure control for dose reduction was used. The mandibular ring is intact. Temporomandibular joints appear intact. Zygomatic arches appear normal . The maxilla is intact. There is mucosal thickening in the right maxillary sinus. There is fracture of the anterior nasal bone with slight depression of the anterior fragment. The orbital margins are i ntact. There is no evidence of retro-orbital mass. There is no evidence of a blowout fracture. There is bilateral patency of the ostiomeatal complex. The frontal bone is intact. There is bilateral meron l aeration of the epitympanic recess bilaterally. The temporal bones are intact. There is incomplete pneumatization of the mastoid sinuses. IMPRESSION: Minimally depressed fracture of the anterior nasal bone. Right maxillary sinusitis. Bilateral mastoiditis.
--- NOTE | 2020-09-30 05:02 | CT ---
EXAMINATION TYPE: CT brain karen joseph con DATE OF EXAM: 09/30/2020 COMPARISON: None HISTORY: Fall. Contusion. CT DLP: mGycm Automated exposure control for dose reduction was used. Ventricles have normal size. There is no mass effect nor midline shift. There is no sign of intracran ial hemorrhage. The calvarium is intact. There is right maxillary sinus mucosal thickening. The cervical vertebra have straightening. There is anterior subluxation of C4 in relation to C5 of al most 4 mm. There is spurring of the endplates. There is multilevel disc space narrowing. There is pos terior endplate spurring and disc herniation at C3-4 and some encroachment on the spinal canal. There is C3-4 spinal stenosis. There is no compression fracture. There is multilevel mild cervical hypertr ophic facet arthropathy. IMPRESSION: No acute intracranial abnormality. Right maxillary sinusitis. No evidence of skull base fracture. Multilevel cervical spondylotic changes with degenerative first-degree before meals 4 5 spondylolisth esis. C3-4 bony spinal stenosis.
== END 2020-09-30 05:22 | disposition home or self-care (01) ==
LOC: EC 03:37
DX: S02.2XXA Fracture of nasal bones, initial encounter for closed fracture (principal); F10.129 Alcohol abuse with intoxication, unspecified; B20 Human immunodeficiency virus [HIV] disease; F17.200 Nicotine dependence, unspecified, uncomplicated; Z88.0 Allergy status to penicillin; W01.198A Fall on same level from slipping, tripping and stumbling with subsequent striking against other object, initial encounter; Y92.410 Unspecified street and highway as the place of occurrence of the external cause
CPT/HCPCS: 70450; 70486; 72125; 99284

== ENCOUNTER 2021-01-08 05:56 | Day surgery (SDC) | payer MEDICARE, BC ==
[2021-01-04 10:16] VITALS: BMI 23.8
[~2021-01-08 05:56] MED LIST: ACETAMINOPHEN TAB 500 MG TAB PO PRN; HEPARIN SODIUM,PORCINE/PF 5,000 UNIT/0.5 ML SYRINGE SQ PRN
[2021-01-08] MEDS ORDERED: METOCLOPRAMIDE 5 MG/ML 2 ML VIAL IVP PRN (06:02)
[2021-01-08] MEDS ORDERED: ONDANSETRON 4 MG/2 ML VIAL IVP ONE (06:02)
[2021-01-08] MEDS ORDERED: LIDOCAINE 1% (10MG/ML) FOR IV START INTRADERMA PRN (06:02)
[2021-01-08] MEDS ORDERED: LACTATED RINGERS 1,000 ML IV SCH (06:02)
[2021-01-08] MEDS ORDERED: DEXAMETHASONE SOD PHOSPHATE 4 MG/ML 1 ML VIAL IV ONE (06:02)
--- NOTE | 2021-01-08 07:39 | P.GSHP ---
History of Present Illness H&P Date: 01/08/21 Chief Complaint: Umbilical hernia 50-year-old male seen in the office 2 months ago. Patient with symptomatic umbilical hernia. This is reducible. Patient was a smoker but quit apparently 1 month ago. No new complaints. Past Medical History Past Medical History: GERD/Reflux, Hyperlipidemia Additional Past Medical History / Comment(s): HIV, neuropathy, tremors, UMBILICAL HERNIA History of Any Multi-Drug Resistant Organisms: None Reported Past Surgical History: Joint Replacement Additional Past Surgical History / Comment(s): bilateral hip replacements Past Anesthesia/Blood Transfusion Reactions: No Reported Reaction Smoking Status: Former smoker - Past Family History Mother Family Medical History: Cancer Medications and Allergies Home Medications Medication Instructions Recorded Confirmed Type Diclofenac Sodium [Voltaren] 75 mg PO BID 06/17/15 01/08/21 History Omeprazole 40 mg PO DAILY 06/17/15 01/08/21 History Pravastatin Sodium 40 mg PO DAILY 06/17/15 01/08/21 History Nevirapine [Viramune] 200 mg PO DAILY 07/25/19 01/08/21 History Bictegrav/Emtricit/Tenofov [place] 1 each PO DAILY 01/04/21 01/08/21 History [Biktarvy 50-200-25 mg Tablet] Gabapentin [Neurontin] 400 mg PO BID 01/04/21 01/08/21 History HYDROcodone/APAP 5-325MG [[place] 1 tab PO TID PRN 01/04/21 01/08/21 History 5-325] Propranolol [Inderal] 40 mg PO BID 01/04/21 01/08/21 History Tadalafil [Alyq] 20 mg PO DAILY 01/04/21 01/08/21 History Allergies Allergy/AdvReac Type Severity Reaction Status Date / Time Penicillins Allergy Rash/Hives Verified 01/08/21 06:41 Surgical - Exam Vital Signs Temp Pulse Resp BP Pulse Ox 97.3 F L 60 16 115/65 95 01/08/21 06:44 01/08/21 06:44 01/08/21 06:44 01/08/21 06:44 01/08/21 06:44 Physical exam: General: Well-developed, well-nourished HEENT: Normocephalic, sclerae nonicteric Abdomen: Nontender, nondistended, reducible umbilical hernia Extremities: No edema Neuro: Alert and oriented Assessment and Plan (1) Umbilical hernia Narrative/Plan: Will proceed with umbilical hernia repair with mesh. Risks of bleeding, infection, recurrence, bladder and bowel injury, numbness, nerve injury were discussed with the patient. The patient understands and wishes to proceed. Current Visit: Yes Status: Acute Code(s): K42.9 - UMBILICAL HERNIA WITHOUT OBSTRUCTION OR GANGRENE SNOMED Code(s): 422051753
[2021-01-08] MEDS ORDERED: GLYCOPYRROLATE 0.2 MG/ML 2 ML VIAL ONE (07:45)
[2021-01-08] MEDS ORDERED: SUCCINYLCHOLINE CHLORIDE 100 MG/5 ML SYR IV ONE (07:45)
[2021-01-08] MEDS ORDERED: NEOSTIGMINE 1 MG/ML 10 ML VIAL ONE (07:45)
[2021-01-08] MEDS ORDERED: fentaNYL (PF) 50 MCG/ML 2 ML AMP ONE (07:45)
[2021-01-08] MEDS ORDERED: ROCURONIUM 10 MG/ML (5 ML VIAL) IV ONE (07:45)
[2021-01-08] MEDS ORDERED: PHENYLEPHRINE-0.9% NACL SYG 1,000 MCG/10 ML SYRINGE ONE (07:45)
[2021-01-08] MEDS ORDERED: MIDAZOLAM 2 MG/2 ML VIAL ONE (07:45)
[2021-01-08] MEDS ORDERED: PROPOFOL 10 MG/ML 20 ML VIAL IV ONE (07:45)
[2021-01-08] MEDS ORDERED: ePHEDrine SULFATE/0.9% NACL/PF 50 MG/5 ML SYRINGE IV ONE (07:45)
[2021-01-08] MEDS ORDERED: BUPIVACAINE (PF) 0.25% 30 ML VIAL SQ ONE (08:08)
[2021-01-08] MEDS ORDERED: LACTATED RINGERS 1,000 ML IV ONE (09:01)
--- NOTE | 2021-01-08 09:13 | P.OP ---
Date of Procedure: 01/08/21 Procedure(s) Performed: PREOPERATIVE DIAGNOSIS: Umbilical hernia reducible POSTOPERATIVE DIAGNOSIS: Umbilical hernia reducible, ventral hernia incarcerated PROCEDURE: Repair reducible umbilical hernia and incarcerated ventral hernia with mesh SURGEON: Dr. De La Cruz ANESTHESIA: General OPERATIVE PROCEDURE DETAILS: The patient was placed in the operating table in the supine position. A left sided periumbilical incision was made using the scalpel. The subcutaneous tissues were dissected bluntly and with cautery. The hernia sac was identified. The umbilical attachments to the fascia were divided using electrocautery. The hernia sac was excised. The defect in the fascia measured 1 x 2 cm The fat overlying the fascia was dissected. An additional hernia was then identified in the midline 3 cm superior to the umbilical hernia fascial defect. This measured 8 mm x 8 mm in size. The hernia sac coming through the incarcerated hernia was excised. The preperitoneal space was then dissected using blunt dissection and electrocautery. The 6.4 cm ventral ex mesh was placed beneath the fascia and sutured in place using trans-fascial 0 Ethibond sutures. The mesh was able to cover both defects nicely. The ventral hernia was first closed using 2 separate [id number] 0 Ethibond sutures in a horizontal fashion. The umbilical fascial defect was closed using interrupted [id number] 0 Ethibond mattress sutures in a vertical fashion. The subcutaneous tissues were reapproximated using inverted 2-0 & 3-0 Vicryl sutures. The umbilicus was tacked back down to the fascia using a 2-0 Vicryl suture. The skin was closed using 4-0 Monocryl sutures. Skin glue and sterile dressings were then applied. HERNIA CHARACTERISTICS: Length: Umbilical 1 cm, ventral 8 mm Width: Umbilical 2 cm, ventral 8 mm Type: Umbilical and ventral TYPE OF MESH USED: 6.4 cm ventral X LOCATION OF MESH: Sub-lay FIXATION: Trans-fascial 0 Ethibond sutures DISPOSITION: Stable to recovery room
[2021-01-08 09:28] VITALS: TEMP 97.7
[2021-01-08] MEDS: HYDROmorphone 0.5 MG/0.5 ML SYRINGE IVP PRN ×2 (09:41→09:49)
[2021-01-08] MEDS ORDERED: KETOROLAC 15 MG/ML 1 ML VIAL ONE (10:57)
[2021-01-08] MEDS ORDERED: KETOROLAC 15 MG/ML 1 ML VIAL IVP ONE (11:01)
[2021-01-08 11:25] VITALS: BP 124/72; PULSE 72; RESP 16
[2021-01-08] MEDS ORDERED: ACETAMINOPHEN TAB 325 MG TAB PO SCH (12:00)
[2021-01-08] MEDS ORDERED: IBUPROFEN 600 MG TAB PO SCH (15:00)
== END 2021-01-08 12:30 ==
LOC: OR 05:56
PROVIDERS: ATTEND Surgery
DX: K42.9 Umbilical hernia without obstruction or gangrene (principal); K40.30 Unilateral inguinal hernia, with obstruction, without gangrene, not specified as recurrent; K43.6 Other and unspecified ventral hernia with obstruction, without gangrene; E78.5 Hyperlipidemia, unspecified; K21.9 Gastro-esophageal reflux disease without esophagitis; Z79.1 Long term (current) use of non-steroidal anti-inflammatories (NSAID); Z87.891 Personal history of nicotine dependence; Z88.0 Allergy status to penicillin
CPT/HCPCS: 49561; 49585; 49568; 88302; C1781; J2250; J1100; J2710; J0690; J2405; J3010; J1885; J2370; J0330; J2704; J1170; J1644

== ENCOUNTER → 2021-03-16 | Outpatient (CLI) | payer MEDICARE, BC ==
[2021-03-16 18:33] LABS: Basophils # (A) 0.04 X 10*3/uL (0.00-0.10); Basophils % (A) 0.4 %; Eosinophils # (A) 0.23 X 10*3/uL (0.04-0.35); Eosinophils % (A) 2.5 %; HCT 48.3 % (39.6-50.0); HGB 15.4 g/dL (13.0-17.0); Lymphocytes # (A) 3.11 X 10*3/uL (0.90-5.00); MCH 32.3 pg (27.0-32.0); MCHC 31.9 g/dL (32.0-37.0); MCV 101.3 fL (80.0-97.0); Mean Platelet Volume 10.8 fL (9.5-12.2); Monocytes # (A) 0.69 X 10*3/uL (0.20-1.00); Monocytes % (A) 7.5 %; Neutrophils # (A) 5.03 X 10*3/uL (1.80-7.70); Neutrophils % (A) 55.2 %; Platelet Count 264 X 10*3/uL (140-440); RBC 4.77 X 10*6/uL (4.40-5.60); RDW 13.7 % (11.5-14.5); WBC 9.14 X 10*3/uL (4.50-10.00)
[2021-03-16 23:56] LABS: Albumin 4.5 g/dL (3.8-4.9); Albumin/Globulin Ratio 1.45 (1.60-3.17); Anion Gap 14.5 mmol/L (10.00-18.00); BUN/Creat Ratio 8.13 Ratio (12.00-20.00); Blood Urea Nitrogen 6.5 mg/dL (9.0-27.0); Calcium 9.7 mg/dL (8.7-10.3); Carbon Dioxide 21.5 mmol/L (20.0-27.5); Globulin 3.1 g/dL (1.6-3.3); Non-African American GFR(CKD) 102.7 (60.0-200.0); Total Bilirubin 0.3 mg/dL (0.30-1.20); Total Protein 7.6 g/dL (6.2-8.2)
[2021-03-17 11:02] LABS: T4/T8 Ratio (CD4:CD8) 0.6 (1.0-3.7)
== END | disposition home or self-care (01) ==
LOC: LABWHC1 13:48
PROVIDERS: ATTEND Internal Medicine Infectious Disease
DX: B20 Human immunodeficiency virus [HIV] disease (principal)
CPT/HCPCS: 36415; 80053; 85025; 86360; 87536

== ENCOUNTER → 2021-09-19 | Outpatient (CLI) | payer MEDICARE, BC ==
[2021-09-19 22:59] LABS: African American GFR (CKD) 117.4 (60.0-200.0); Anion Gap 11.6 mmol/L (10.00-18.00); BUN/Creat Ratio 8.49 Ratio (12.00-20.00); Blood Urea Nitrogen 6.9 mg/dL (9.0-27.0); Calcium 10.3 mg/dL (8.7-10.3); Carbon Dioxide 27.2 mmol/L (20.0-27.5); Non-African American GFR(CKD) 101.3 (60.0-200.0); Potassium 5.4 mmol/L (3.5-5.5)
[2021-09-19 23:13] LABS: Basophils # (A) 0.04 X 10*3/uL (0.00-0.10); Basophils % (A) 0.3 %; Eosinophils # (A) 0.07 X 10*3/uL (0.04-0.35); Eosinophils % (A) 0.6 %; HCT 52.4 % (39.6-50.0); HGB 17.3 g/dL (13.0-17.0); Immature Grans, Automated 0.5 %; Lymphocytes # (A) 3.24 X 10*3/uL (0.90-5.00); Lymphocytes % (A) 26.9 %; MCH 32.6 pg (27.0-32.0); MCV 98.9 fL (80.0-97.0); Mean Platelet Volume 11.1 fL (9.5-12.2); Monocytes # (A) 0.73 X 10*3/uL (0.20-1.00); Monocytes % (A) 6.1 %; NRBC Per 100 WBC 0 /100 WBCS (0.0-0.0); Neutrophils # (A) 7.89 X 10*3/uL (1.80-7.70); Neutrophils % (A) 65.6 %; Platelet Count 274 X 10*3/uL (140-440); WBC 12.03 X 10*3/uL (4.50-10.00)
[2021-09-20 11:39] LABS: HIV-1 RNA Not detected (Not detected); HIV-1 RNA, Quant <40 Copies/mL (<40); LOG HIV Copies/mL <1.60 (<1.60)
[2021-09-20 12:16] LABS: T4/T8 Ratio (CD4:CD8) 0.7 (1.0-3.7)
== END | disposition home or self-care (01) ==
LOC: LABWHC1 10:46
PROVIDERS: ATTEND Internal Medicine Infectious Disease
DX: B20 Human immunodeficiency virus [HIV] disease (principal)
CPT/HCPCS: 36415; 80048; 84450; 84460; 85025; 86360; 87536

== ENCOUNTER 2021-09-26 13:24 | Emergency (ER) | payer MEDICARE, BC ==
[2021-09-26 16:18] VITALS: BP 138/83; PULSE 62; RESP 18; TEMP 97.9
--- NOTE | 2021-09-26 17:07 | XR ---
EXAMINATION TYPE: XR Hip Complete RT DATE OF EXAM: 09/26/2021 COMPARISON: 05/07/2019 HISTORY: Hip pain TECHNIQUE: 2 views FINDINGS: There is right hip prosthesis. No fracture seen. Components appear in anatomic position. Th ere is periarticular ossification. IMPRESSION: No fracture seen. No change compared to old exam.
[2021-09-26] MEDS ORDERED: HYDROcodone/APAP 5-325MG 1 EACH TAB PO STA (19:09)
--- NOTE | 2021-09-26 19:32 | ED ---
General Adult HPI - General Chief complaint: Extremity Injury, Lower Stated complaint: fall Time Seen by Provider: 09/26/21 18:55 Source: patient, RN notes reviewed, old records reviewed Mode of arrival: wheelchair Limitations: no limitations - History of Present Illness Initial comments: Patient is a 51-year-old male who presents emergency department concern for right hip injury. His past medical history remarkable for HIV on Biktarvy with an undetectable viral load, bilateral hip replacements who fell yesterday onto his right side. Since that time he has been having right hip pain as well as lower back pain. Denies any urinary or bowel incontinence, retention. Denies any saddle anesthesias. Denies any lower extremity weakness. Denies any abdominal pain, nausea, vomiting. His no chest pain or shortness of breath. Is not on blood thinners. Did not hit his head. Denies loss conscious. His no other acute complaints at this time. Concerned that he may have injured his right hip replacement. - Related Data Home Medications Medication Instructions Recorded Confirmed Diclofenac Sodium [Voltaren] 75 mg PO BID 06/17/15 01/08/21 Omeprazole 40 mg PO DAILY 06/17/15 01/08/21 Pravastatin Sodium 40 mg PO DAILY 06/17/15 01/08/21 Nevirapine [Viramune] 200 mg PO DAILY 07/25/19 01/08/21 Bictegrav/Emtricit/Tenofov [place] 1 each PO DAILY 01/04/21 01/08/21 [Biktarvy 50-200-25 mg Tablet] Gabapentin [Neurontin] 400 mg PO BID 01/04/21 01/08/21 HYDROcodone/APAP 5-325MG [[place] 1 tab PO TID PRN 01/04/21 01/08/21 5-325] Propranolol [Inderal] 40 mg PO BID 01/04/21 01/08/21 tadalafiL [Alyq] 20 mg PO DAILY 01/04/21 01/08/21 Previous Rx's Medication Instructions Recorded methocarbamoL [Robaxin] 500 mg PO BID PRN 7 Days #14 tab 09/26/21 Allergies Allergy/AdvReac Type Severity Reaction Status Date / Time Penicillins Allergy Rash/Hives Verified 01/08/21 06:41 Review of Systems ROS Statement: Those systems with pertinent positive or pertinent negative responses have been documented in the HPI. Review of Systems: CONST: Denies fever EYES: Denies blurry vision ENT: Denies nasal congestion C/V: Denies Chest pain RESP: Denies shortness of breath GI: Denies abdominal pain : Denies dysuria SKIN: Denies rash. MSK: Endorses low back pain, right hip pain. NEURO: Denies headache ROS Other: All systems not noted in ROS Statement are negative. Past Medical History Past Medical History: No Reported History Additional Past Medical History / Comment(s): HIV, neuropathy, tremors History of Any Multi-Drug Resistant Organisms: None Reported Past Surgical History: Joint Replacement, Orthopedic Surgery Additional Past Surgical History / Comment(s): bilateral hip replacements Past Psychological History: Anxiety Smoking Status: Current every day smoker Past Alcohol Use History: Occasional Past Drug Use History: None Reported General Exam - General Exam Comments Initial Comments: General: Appears in mild distress secondary to discomfort in the right hip and back. HEAD: Normal with no signs of head trauma. EYES: PERRLA, EOMI, conjunctiva normal, no discharge. ENT: Hearing grossly intact, normal oropharynx. RESPIRATORY: Clear breath sounds bilaterally. No wheezes, rales, or rhonchi. C/V: Regular rate and rhythm. S1 and S2 auscultated, no edema, peripheral pulses 2+ and intact throughout ABD: Abd is soft, nontender, nondistended EXT: Pelvis is stable. No midline tenderness to palpation. Primarily right paraspinal muscle tenderness palpation in the lumbar spine. She has tenderness palpation over the right hip. Normal range of motion, however pain with movement of the right hip, particularly with flexion. SKIN: No rashes or lesions observed on exposed skin. NEURO: Alert and oriented 4. Neurovascularly intact throughout. Limitations: no limitations Course Vital Signs 09/26/21 16:12 Temperature 97.9 F Pulse Rate 62 Respiratory 18 Rate Blood Pressure 138/83 O2 Sat by Pulse 97 Oximetry Medical Decision Making - Medical Decision Making Based on the patient's presentation physical exam, I'm concerned for possible right hip or lower back injury. While the patient was in triage, pelvis x-ray was obtained which showed no acute fracture or subluxation. As the patient is continuing to have pain, particularly with the severity of that I did recommend we obtain a CT of the lumbar spine as well as pelvis without contrast. He was in agreement this plan. We will provide him with analgesia as well. No concern for cauda equina syndrome at this time. CT imaging showed no signs of acute fracture or subluxation. There are degenerative changes seen in lumbar spine. No changes compared to old exams. The prostheses seem to be intact without injury. Abdomen the patient results of the CT imaging. Likely experiencing bruising as well as muscle strains from the fall. We'll prescribe him Robaxin. Is already on [place] at home. Patient was in agreement this plan. I will provide the patient with a prescription for Robaxin. I instructed the patient to follow up with their PCP in the next 3 days. . I explained that the patient should return to the emergency department if they experience any worsening symptoms. Strict return precautions were discussed with the patient. The patient expressed understanding of these instructions. I answered all questions that the patient had. The patient was discharged home in good condition with their prescriptions and follow up information. Disposition Clinical Impression: Fall, Muscle strain, Hip pain Disposition: HOME SELF-CARE Condition: Good Instructions (If sedation given, give patient instructions): Hip Pain (ED) Prescriptions: methocarbamoL [Robaxin] 500 mg PO BID PRN 7 Days #14 tab PRN Reason: Pain Is patient prescribed a controlled substance at d/c from ED?: No Referrals: Robby Piedra MD [Primary Care Provider] - 1-2 days Time of Disposition: 20:30
--- NOTE | 2021-09-26 19:56 | CT ---
EXAMINATION TYPE: CT lumbar spine wo con DATE OF EXAM: 09/26/2021 COMPARISON: MR scan for 20-21 HISTORY: Fall, Rt hip/back pain CT DLP: 781.5 mGycm Automated exposure control for dose reduction was used. Images obtained from T12 to S3 vertebra with no contrast. The lumbar vertebrae have normal alignment. Disc spaces are fairly normal. There is hypertrophic ante rior spurring throughout the lumbar spine. No compression fracture. There is mild spurring of the fac et joints. There is no lumbar paraspinal mass. No evidence of focal bone destruction. Abdominal aorta is atheromatous. Sacroiliac joints are intact. IMPRESSION: There are hypertrophic degenerative disc changes in the lumbar spine. No change compared to old exam. No fracture seen.
--- NOTE | 2021-09-26 20:09 | CT ---
EXAMINATION TYPE: CT pelvis wo con DATE OF EXAM: 09/26/2021 COMPARISON: None HISTORY: Fall, RT hip/back pain CT DLP: 580.5 mGycm Automated exposure control for dose reduction was used. Images obtained from the mid femurs to the L4 vertebra with no contrast. There is bilateral hip prosthesis. Components appear in anatomic position. The pelvic ring is intact. Sacroiliac joints are intact. Sacrum and coccyx segments have normal alignment. There is no presacra l edema. The lower lumbar spine is intact. No compression fracture. There is periarticular ossification at the right hip prosthesis. No evidence of focal bone destructio n. No sign of a soft tissue mass. No pathologic fluid collection. IMPRESSION: No evidence of acute traumatic injury of the pelvis and the hip joints.
[2021-09-26] MEDS ORDERED: methocarbamoL 500 MG TAB PO STA (20:28)
== END 2021-09-26 20:52 | disposition home or self-care (01) ==
LOC: EC 13:24
DX: S76.012A Strain of muscle, fascia and tendon of left hip, initial encounter (principal); F41.9 Anxiety disorder, unspecified; B20 Human immunodeficiency virus [HIV] disease; G62.9 Polyneuropathy, unspecified; F17.200 Nicotine dependence, unspecified, uncomplicated; Z79.899 Other long term (current) drug therapy; W19.XXXA Unspecified fall, initial encounter
CPT/HCPCS: 72131; 72192; 73502; 99284

== ENCOUNTER → 2022-03-20 | Outpatient (CLI) | payer MEDICARE, BC ==
[2022-03-20 14:28] LABS: Basophils # (A) 0.04 X 10*3/uL (0.00-0.10); Basophils % (A) 0.5 %; Eosinophils # (A) 0.18 X 10*3/uL (0.04-0.35); Eosinophils % (A) 2.2 %; HCT 47.4 % (39.6-50.0); HGB 16.5 g/dL (13.0-17.0); Immature Grans, Automated 0.4 %; Lymphocytes # (A) 2.72 X 10*3/uL (0.90-5.00); Lymphocytes % (A) 32.7 %; MCH 34.2 pg (27.0-32.0); MCHC 34.8 g/dL (32.0-37.0); MCV 98.3 fL (80.0-97.0); Mean Platelet Volume 10.8 fL (9.5-12.2); Monocytes # (A) 0.77 X 10*3/uL (0.20-1.00); Monocytes % (A) 9.3 %; NRBC Per 100 WBC 0 /100 WBCS (0.0-0.0); Neutrophils # (A) 4.58 X 10*3/uL (1.80-7.70); Neutrophils % (A) 54.9 %; Platelet Count 227 X 10*3/uL (140-440); RBC 4.82 X 10*6/uL (4.40-5.60); RDW 12.2 % (11.5-14.5); WBC 8.32 X 10*3/uL (4.50-10.00)
[2022-03-21 01:10] LABS: Albumin 4.6 g/dL (3.8-4.9); Albumin/Globulin Ratio 1.48 (1.60-3.17); Anion Gap 10.3 mmol/L (10.00-18.00); BUN/Creat Ratio 9.24 Ratio (12.00-20.00); Blood Urea Nitrogen 8.4 mg/dL (9.0-27.0); Calcium 9.9 mg/dL (8.7-10.3); Carbon Dioxide 27.9 mmol/L (20.0-27.5); Globulin 3.1 g/dL (1.6-3.3); Non-African American GFR(CKD) 96.7 (60.0-200.0); Potassium 4.9 mmol/L (3.5-5.5); Total Bilirubin 0.4 mg/dL (0.30-1.20); Total Protein 7.7 g/dL (6.2-8.2)
== END | disposition home or self-care (01) ==
LOC: LABWHC1 10:44
PROVIDERS: ATTEND Internal Medicine Infectious Disease
DX: B20 Human immunodeficiency virus [HIV] disease (principal)
CPT/HCPCS: 36415; 80053; 85025

== ENCOUNTER 2022-03-24 01:01 | Emergency (ER) | payer MEDICARE, BC ==
[2022-03-24] MEDS ORDERED: SODIUM CHLORIDE 0.9% 500 ML 500 ML IV STA (01:14)
[2022-03-24] MEDS ORDERED: ONDANSETRON 4 MG/2 ML VIAL IVP STA (01:14)
[2022-03-24] MEDS ORDERED: SODIUM CHLORIDE 0.9% 1,000 ML IV STA ×2 (01:14)
[2022-03-24] MEDS ORDERED: LORazepam 2 MG/ML INJ IV STA (01:15)
--- NOTE | 2022-03-24 01:16 | ED ---
Fall HPI - General Chief Complaint: Fall Stated Complaint: Fall, back injury Time Seen by Provider: 03/24/22 01:14 Source: family Mode of arrival: wheelchair - Related Data Home Medications Medication Instructions Recorded Confirmed Diclofenac Sodium [Voltaren] 75 mg PO BID 06/17/15 01/08/21 Omeprazole 40 mg PO DAILY 06/17/15 01/08/21 Pravastatin Sodium 40 mg PO DAILY 06/17/15 01/08/21 Nevirapine [Viramune] 200 mg PO DAILY 07/25/19 01/08/21 Bictegrav/Emtricit/Tenofov Ala 1 each PO DAILY 01/04/21 01/08/21 [Biktarvy 50-200-25 mg Tablet] Gabapentin [Neurontin] 400 mg PO BID 01/04/21 01/08/21 HYDROcodone/APAP 5-325MG [[place] 1 tab PO TID PRN 01/04/21 01/08/21 5-325] Propranolol [Inderal] 40 mg PO BID 01/04/21 01/08/21 tadalafiL [Alyq] 20 mg PO DAILY 01/04/21 01/08/21 Previous Rx's Medication Instructions Recorded methocarbamoL [Robaxin] 500 mg PO BID PRN 7 Days #14 tab 09/26/21 Allergies Allergy/AdvReac Type Severity Reaction Status Date / Time Penicillins Allergy Rash/Hives Verified 03/24/22 01:14 Review of Systems ROS Statement: Those systems with pertinent positive or pertinent negative responses have been documented in the HPI. ROS Other: All systems not noted in ROS Statement are negative. Past Medical History Past Medical History: No Reported History Additional Past Medical History / Comment(s): HIV, neuropathy, tremors History of Any Multi-Drug Resistant Organisms: None Reported Past Surgical History: Joint Replacement, Orthopedic Surgery Additional Past Surgical History / Comment(s): bilateral hip replacements Past Psychological History: Anxiety Smoking Status: Current every day smoker Past Alcohol Use History: Abuse, Daily, Heavy Past Drug Use History: None Reported General Exam Limitations: no limitations Course Vital Signs 03/24/22 03/24/22 03/24/22 01:11 01:30 02:00 Temperature 97.6 F Pulse Rate 68 69 79 Respiratory 18 16 16 Rate Blood Pressure 146/106 119/81 120/75 O2 Sat by Pulse 100 98 98 Oximetry 03/24/22 03/24/22 03/24/22 02:30 03:00 04:00 Temperature Pulse Rate 75 82 77 Respiratory 16 16 16 Rate Blood Pressure 98/68 114/63 120/77 O2 Sat by Pulse 98 98 96 Oximetry - Reevaluation(s) Reevaluation #1: 03/24/22 medical record is reviewed Patient symptoms are improved here in the ER Patient informed of results and questions answered Medical Decision Making - Lab Data Result diagrams: 03/24/22 01:18 03/24/22 01:18 Lab Results 03/24/22 03/24/22 03/24/22 Range/Units 01:18 01:18 01:18 WBC 12.4 H (3.8-10.6) k/uL RBC 5.04 (4.30-5.90) m/uL Hgb 17.5 (13.0-17.5) gm/dL Hct 50.5 (39.0-53.0) % MCV 100.2 H D (80.0-100.0) fL MCH 34.6 (25.0-35.0) pg MCHC 34.6 (31.0-37.0) g/dL RDW 12.7 (11.5-15.5) % Plt Count 236 (150-450) k/uL MPV 8.6 Neutrophils % 49 % Lymphocytes % 39 % Monocytes % 7 % Eosinophils % 2 % Basophils % 1 % Neutrophils # 6.0 (1.3-7.7) k/uL Lymphocytes # 4.8 (1.0-4.8) k/uL Monocytes # 0.9 (0-1.0) k/uL Eosinophils # 0.3 (0-0.7) k/uL Basophils # 0.1 (0-0.2) k/uL PT 10.4 (9.0-12.0) sec INR 1.0 (<1.2) APTT 26.1 (22.0-30.0) sec Sodium 140 (137-145) mmol/L Potassium 4.2 (3.5-5.1) mmol/L Chloride 101 (98-107) mmol/L Carbon Dioxide 27 (22-30) mmol/L Anion Gap 12 mmol/L BUN 8 L (9-20) mg/dL Creatinine 0.90 (0.66-1.25) mg/dL Est GFR (CKD-EPI)AfAm >90 (>60 ml/min/1.73 sqM) Est GFR (CKD-EPI)NonAf >90 (>60 ml/min/1.73 sqM) Glucose 103 H (74-99) mg/dL Calcium 9.5 (8.4-10.2) mg/dL Phosphorus 5.0 H (2.5-4.5) mg/dL Magnesium 2.1 (1.6-2.3) mg/dL Total Bilirubin 0.4 (0.2-1.3) mg/dL AST 42 (17-59) U/L ALT 34 (4-49) U/L Alkaline Phosphatase 118 (38-126) U/L Troponin I (0.000-0.034) ng/mL Total Protein 8.9 H (6.3-8.2) g/dL Albumin 5.0 (3.5-5.0) g/dL 03/24/22 Range/Units 01:18 WBC (3.8-10.6) k/uL RBC (4.30-5.90) m/uL Hgb (13.0-17.5) gm/dL Hct (39.0-53.0) % MCV (80.0-100.0) fL MCH (25.0-35.0) pg MCHC (31.0-37.0) g/dL RDW (11.5-15.5) % Plt Count (150-450) k/uL MPV Neutrophils % % Lymphocytes % % Monocytes % % Eosinophils % % Basophils % % Neutrophils # (1.3-7.7) k/uL Lymphocytes # (1.0-4.8) k/uL Monocytes # (0-1.0) k/uL Eosinophils # (0-0.7) k/uL Basophils # (0-0.2) k/uL PT (9.0-12.0) sec INR (<1.2) APTT (22.0-30.0) sec Sodium (137-145) mmol/L Potassium (3.5-5.1) mmol/L Chloride (98-107) mmol/L Carbon Dioxide (22-30) mmol/L Anion Gap mmol/L BUN (9-20) mg/dL Creatinine (0.66-1.25) mg/dL Est GFR (CKD-EPI)AfAm (>60 ml/min/1.73 sqM) Est GFR (CKD-EPI)NonAf (>60 ml/min/1.73 sqM) Glucose (74-99) mg/dL Calcium (8.4-10.2) mg/dL Phosphorus (2.5-4.5) mg/dL Magnesium (1.6-2.3) mg/dL Total Bilirubin (0.2-1.3) mg/dL AST (17-59) U/L ALT (4-49) U/L Alkaline Phosphatase (38-126) U/L Troponin I <0.012 (0.000-0.034) ng/mL Total Protein (6.3-8.2) g/dL Albumin (3.5-5.0) g/dL - EKG Data -: EKG Interpreted by Me (EKG is sinus 73 MN 167 QRS 12 7 QTc 440) Disposition Clinical Impression: Fall, Alcohol intoxication, Traumatic hematoma of forehead, Nasal laceration Disposition: HOME SELF-CARE Condition: Good Instructions (If sedation given, give patient instructions): Fall Prevention (ED), Hematoma (ED) Is patient prescribed a controlled substance at d/c from ED?: No Referrals: None,Stated [REFERRING] - 1-2 days Time of Disposition: 04:05
[2022-03-24 01:31] LABS: Basophils # (A) 0.1 k/uL (0-0.2); Basophils % (A) 1 %; Eosinophils # (A) 0.3 k/uL (0-0.7); Eosinophils % (A) 2 %; HCT 50.5 % (39.0-53.0); HGB 17.5 gm/dL (13.0-17.5); Lymphocytes # (A) 4.8 k/uL (1.0-4.8); Lymphocytes % (A) 39 %; MCH 34.6 pg (25.0-35.0); MCHC 34.6 g/dL (31.0-37.0); Mean Platelet Volume 8.6; Monocytes # (A) 0.9 k/uL (0-1.0); Monocytes % (A) 7 %; Neutrophils % (A) 49 %; Platelet Count 236 k/uL (150-450); RBC 5.04 m/uL (4.30-5.90); RDW 12.7 % (11.5-15.5); WBC 12.4 k/uL (3.8-10.6)
[2022-03-24 01:38] LABS: MCV 100.2 fL (80.0-100.0)
[2022-03-24 01:42] LABS: ALT 34 U/L (4-49); AST 42 U/L (17-59); African American GFR (CKD) >90 (>60 ml/min/1.73 sqM); Alkaline Phosphatase 118 U/L (38-126); Anion Gap 12 mmol/L; Blood Urea Nitrogen 8 mg/dL (9-20); Calcium 9.5 mg/dL (8.4-10.2); Carbon Dioxide 27 mmol/L (22-30); Chloride 101 mmol/L (98-107); Glucose 103 mg/dL (74-99); Magnesium 2.1 mg/dL (1.6-2.3); Non-African American GFR(CKD) >90 (>60 ml/min/1.73 sqM); Partial Thromboplastin Time 26.1 sec (22.0-30.0); Potassium 4.2 mmol/L (3.5-5.1); Prothrombin Time 10.4 sec (9.0-12.0); Sodium 140 mmol/L (137-145); Total Bilirubin 0.4 mg/dL (0.2-1.3); Total Protein 8.9 g/dL (6.3-8.2)
--- NOTE | 2022-03-24 01:53 | CT ---
EXAMINATION TYPE: CT brain cspine wo con DATE OF EXAM: 03/24/2022 COMPARISON: 09/30/2020 HISTORY: FALL, HIT HEAD AT GLABE[place]A AREA W/ LAC, ETOH +. BEST POSSIBLE, PT IS VERY INTOXICATED AND NO T LISTENING OR HOLDING STILL. REPEATED CSPINE 3 TIMES DUE TO MOTION CT DLP: 856 mGycm Automated exposure control for dose reduction was used. Images of the brain and cervical spine obtained with no contrast. There is some frontal scalp soft tissue swelling. Ventricles of normal size. There is no mass effect or midline shift. No sign of intracranial hemorrhage. There is mild mucosal thickening in the right m axillary sinus. Skull base is intact. The calvarium is intact. The cervical vertebra show some straightening. There is moderate hypertrophic anterior spurring from C3 to T1 level. Posterior elements are intact. There is multilevel hypertrophic cervical facet arthro aylin. There is some mild subluxation at C4-5. IMPRESSION: Mild frontal scalp soft tissue swelling. Spondylotic changes in the cervical spine. No cervical spine fracture. Cervical spine not changed compared to old exam. Brain not changed compared to old exam.
--- NOTE | 2022-03-24 02:05 | CT ---
EXAMINATION TYPE: CT facial bones wo con DATE OF EXAM: 03/24/2022 COMPARISON: 09/30/2020 HISTORY: FALL, HIT HEAD AT GLABE[place]A AREA W/ LAC, ETOH +. BEST POSSIBLE, PT IS VERY INTOXICATED AND NO T LISTENING OR HOLDING STILL. REPEATED CSPINE 3 TIMES DUE TO MOTION CT DLP: 825.1 mGycm Automated exposure control for dose reduction was used. Images obtained from the bottom of the mandible to the top of the frontal sinuses without contrast. The mandibular ring is intact. Temporomandibular joints are intact. Zygomatic arches appear normal. N kieran bone is intact. Maxilla is intact. There is mild mucosal thickening right maxillary sinus. There is no evidence of orbital blowout fracture. Orbital margins are intact. No retro-orbital mass. There is some mild frontal scalp soft tissue swelling. Submandibular salivary glands are intact. The parotid glands are intact. Prevertebral soft tissues are intact. IMPRESSION: Right maxillary sinusitis. No fracture seen. Frontal scalp soft tissue swelling. Sinusitis is not angel nged compared to old exam.
[2022-03-24 03:24] VITALS: RESP 16
[2022-03-24 04:04] VITALS: TEMP 97.6
[2022-03-24 04:17] VITALS: BP 120/77; PULSE 77
== END 2022-03-24 04:25 | disposition home or self-care (01) ==
LOC: EC 01:01
DX: S01.21XA Laceration without foreign body of nose, initial encounter (principal); F41.9 Anxiety disorder, unspecified; F10.929 Alcohol use, unspecified with intoxication, unspecified; F17.200 Nicotine dependence, unspecified, uncomplicated; Z88.0 Allergy status to penicillin; W19.XXXA Unspecified fall, initial encounter
CPT/HCPCS: 36415; 93005; 80053; 83735; 84100; 84484; 85025; 85610; 85730; 72125; 70486; 70450; 99284; 96374; 96375; 96361 ×2; J2060; J2405

== ENCOUNTER → 2022-04-18 | Outpatient (CLI) | payer MEDICARE, BC ==
--- NOTE | 2022-04-18 10:30 | MR ---
EXAMINATION TYPE: MR lumbar spine wo con DATE OF EXAM: 04/18/2022 COMPARISON: CT lumbar spine 09/26/2021, MR lumbar spine 07/27/2020 HISTORY: Severe low back pain TECHNIQUE: Multiplanar, multisequence images of the lumbar spine were acquired without IV contrast. FINDINGS: Lumbar segments are intact. No paraspinal masses are identified. Conus medullaris has a n ormal appearance. Multilevel spondylosis with endplate discogenic marrow signal change multilevel dis c desiccation is present. L1-L2: No herniation or disc bulge. No central canal stenosis. The neural foramina are patent bilater ally. L2-L3: No herniation or disc bulge. No central canal stenosis. The neural foramina are patent bilater ally. L3-L4: Right foraminal zone disc protrusion superimposed upon a broad-based disc bulge. There is epid ural lipomatosis and ligamentum flavum buckling with bilateral facet arthropathy contributing to mild to moderate spinal canal stenosis. There is moderate right neural foraminal stenosis. The left neura l foramen is patent. L4-L5: Right foraminal zone disc protrusion superimposed upon a broad-based disc bulge. There is epid ural lipomatosis and ligamentum flavum buckling with bilateral facet arthropathy contributing to mild to moderate spinal canal stenosis. There is moderate right neural foraminal stenosis. The left neura l foramen is patent. L5-S1: Broad-based disc bulge with epidural lipomatosis contributing to mild spinal canal narrowing. Facet arthropathy with left greater than right. Moderate left and mild right neural foraminal stenosi s. IMPRESSION: 1. L3-L4 and L4-L5 right foraminal zone disc herniations contributing to moderate right neural alberta inal stenosis. 2. Multilevel degenerative disc disease most pronounced at L3-L4 and L4-L5 with disc bulges, ligamen glenis flavum buckling, epidural lipomatosis, and facet arthropathy contributing to mild to moderate spi nal canal stenosis.
== END | disposition home or self-care (01) ==
LOC: RADMRIMAIN 07:54
PROVIDERS: ATTEND Internal Medicine
DX: M51.36 Other intervertebral disc degeneration, lumbar region (principal); M47.817 Spondylosis without myelopathy or radiculopathy, lumbosacral region; M51.27 Other intervertebral disc displacement, lumbosacral region; E88.2 Lipomatosis, not elsewhere classified; M99.73 Connective tissue and disc stenosis of intervertebral foramina of lumbar region
CPT/HCPCS: 72148

== ENCOUNTER → 2022-06-27 | Outpatient (CLI) | payer MEDICARE, BC ==
[2022-06-27 10:35] VITALS: BP 127/72; PULSE 73; RESP 18; TEMP 98.9
--- NOTE | 2022-06-27 13:02 | P.PAINPG ---
PQRS Measure Charge Sheet Comment: A 52 yr old male with a history of severe and chronic LBP secondary to lumbar DDD and spondylosis with facet arthropathy without myelopathy presents today for evaluation s/p GINO L4-L5 #1. Pt states he experienced 70% pain relief x 3 wks s/p procedure. Pain level is provoked at 6/10 in intensity, constant, localized in the lumbar spine, sharp in character w shooting towards the L hip, buttock and LLE. Pain is provoked by . Pain is alleviated with PT x 4 wks Apr 2022, heat, ice, medications (Ibu, [place]), topical, home exercise regimen, use of a walker for ambulation, lumbar support brace, injections, repositioning and rest. Interventional pain procedures completed include GINO L4-L5 x1 Patient is currently on Ibu, [place] Patient denies any side effects of the medication(s), denies excessive drowsiness or sleepiness, denies suicidal ideation and reports that the current pain medication is helping to control the pain and improve activities of daily living. Patient denies any motor or sensory deficits. Patient denies any fever or night sweats, denies any change in the bowel movements or urination. Physical Examination: -Constitutional: Cooperative. Not in acute distress . - Neurologic: Cranial nerve II to XII intact. No focal neurological deficits. - Psychatric: Alert & oriented x 3. Matching mood & appropriate affect. Judgment and insight intact. - Musculoskeletal: Cervical spine: Muscle bulk/ tone/ strength in the bilateral upper extremities normal Vertebral body tenderness to palpation over Spurling test positive Distraction test positive Facet loading test positive TTP Thoracic spine Muscle bulk / tone/ strength in the bilateral paraspinal muscles normal Vertebral body tender to palpation over Facet loading test positive TTP Lumbar spine: Motor bulk/ tone/ strength lower extremities , thigh and legs : 5/5 Deep tendon reflexes : Normal Knee Jerk. Normal Ankle Jerk . Vertebral body tenderness to palpation over L4 Lumbar Facet Loading Test positive Straight Leg Raise: positive at 30 degrees right side/ left side Gaenslen's Test positive Sacral spine : Severe tenderness over the Sacroiliac joint: right side / left side Range of motion: Flexion of the lumbar spine <60 degrees Range of motion: Extension of the lumbar spine <20 degrees Gaenslen's Test positive right side / left side Jeimy test: positive right side / left side Thigh Thrust Test positive right side / left side Sacral Thrust Test positive right side / left side Assessment and plan: Chronic LBP secondary to lumbar DDD, spondylosis with facet arthropathy without myelopathy Pt exhibited sufficient pain relief w prior GINO procedure. He may manage residual pain at home and may follow up at this clinic on an as needed basis. All questions answered. I have spent less than 30 minutes on patient care today. Dr George was available by phone for the evaluation of this patient. The time was used to review the medical records including relevant urine studies and Prescription history (MAPs), review of the available imaging, evaluation and examination of the patient, coordination of care with the medical staff and if applicable referring physicians, as well as creation of the medical record PQRS Narrative: Smoking Status Current every day smoker Hx Alcohol Use (MH) Yes: SOCIAL Home Medications: Ambulatory Orders Omeprazole 40 mg PO DAILY 06/17/15 Pravastatin Sodium 40 mg PO DAILY 06/17/15 Bictegrav/Emtricit/Tenofov Ala [Biktarvy 50-200-25 mg Tablet] 1 each PO DAILY 01/04/21 Gabapentin [Neurontin] 400 mg PO BID 01/04/21 HYDROcodone/APAP 5-325MG [[place] 5-325] 1 tab PO TID PRN 01/04/21 Propranolol [Inderal] 40 mg PO BID 01/04/21 tadalafiL [Alyq] 20 mg PO DAILY 01/04/21 methocarbamoL [Robaxin] 500 mg PO BID PRN 7 Days #14 tab 09/26/21 Controlled Substance Measures - Controlled Substance Measures Is patient prescribed a controlled substance at discharge?: No
== END ==
LOC: PNWHC3 10:04
PROVIDERS: ATTEND Specialist
DX: M51.36 Other intervertebral disc degeneration, lumbar region (principal); M47.816 Spondylosis without myelopathy or radiculopathy, lumbar region; G89.29 Other chronic pain; F17.210 Nicotine dependence, cigarettes, uncomplicated; Z88.0 Allergy status to penicillin
CPT/HCPCS: 99211

== ENCOUNTER → 2022-09-18 | Outpatient (CLI) | payer MEDICARE, BC ==
[2022-09-18 15:03] LABS: Basophils # (A) 0.02 X 10*3/uL (0.00-0.10); Basophils % (A) 0.3 %; Eosinophils # (A) 0.09 X 10*3/uL (0.04-0.35); Eosinophils % (A) 1.3 %; HCT 49.4 % (39.6-50.0); HGB 16.7 d/dL (12.0-15.0); Lymphocytes # (A) 1.91 X 10*3/uL (0.90-5.00); Lymphocytes % (A) 28.3 %; MCH 34.9 pg (27.0-32.0); MCHC 33.8 d/dL (32.0-37.0); MCV 103.1 FL (80.0-97.0); Mean Platelet Volume 10.8 FL (9.5-12.2); Monocytes # (A) 0.54 X 10*3/uL (0.20-1.00); NRBC Per 100 WBC 0 X 10*3/uL (0.00-0.01); Neutrophils # (A) 4.18 X 10*3/uL (1.80-7.70); Neutrophils % (A) 61.8 %; Platelet Count 254 X 10*3/uL (140-440); RBC 4.79 X 10*6/uL (4.40-5.60); RDW 12.2 % (11.5-14.5); WBC 6.76 X 10*3/uL (4.50-10.00)
[2022-09-18 15:41] LABS: ALT 24 U/L (10-49); AST 27 U/L (14-35); Albumin 4.3 d/dL (3.8-4.9); Albumin/Globulin Ratio 1.43 Ratio (1.60-3.17); Alkaline Phosphatase 109 U/L (41-126); BUN/Creat Ratio 9.78 Ratio (12.00-20.00); Blood Urea Nitrogen 8.8 mg/dL (9.0-27.0); Calcium 9.7 mg/dL (8.7-10.3); Carbon Dioxide 27.5 mmol/L (21.6-31.8); Chloride 106 mmol/L (96-109); Glucose 116 mg/dL (70-110); Potassium 4.5 mmol/L (3.5-5.5); Sodium 143 mmol/L (135-145); Total Bilirubin 0.3 mg/dL (0.3-1.2); Total Protein 7.3 d/dL (6.2-8.2)
[2022-09-19 11:11] LABS: HIV-1 RNA Not detected (Not detected); HIV-1 RNA, Quant <20 Copies/mL (<20); LOG HIV Copies/mL <1.30 (<1.30)
[2022-09-19 13:33] LABS: T4/T8 Ratio (CD4:CD8) 0.6 (1.0-3.7)
== END | disposition home or self-care (01) ==
LOC: LABWHC1 09:41
PROVIDERS: ATTEND Internal Medicine Infectious Disease
DX: Z00.00 Encounter for general adult medical examination without abnormal findings (principal)
CPT/HCPCS: 36415; 80053; 85025; 86360; 87536

== ENCOUNTER → 2022-12-12 | Outpatient (CLI) | payer MEDICARE, BC ==
[2022-12-12 14:00] VITALS: BP 116/66; PULSE 65; RESP 16; TEMP 98.5
--- NOTE | 2022-12-12 14:27 | P.PAINPG ---
PQRS Measure Charge Sheet Comment: A 52 yr old male with a history of severe and chronic LBP secondary to lumbar DDD and spondylosis with facet arthropathy without myelopathy presents today for evaluation. Pain level is provoked at 8/10 in intensity, constant, localized in the lumbar spine, throbbing in character w shooting towards the R hip, buttock and LLE. Pain is provoked by walking and over activity. Pain is alleviated with PT x 8 wks Nov 2022, heat, ice, medications, topical, home exercise regimen, use of a walker for ambulation, lumbar support brace, injections, repositioning and rest. Oswestry axial pain score of 25. Interventional pain procedures completed include GINO L4-L5 x1 Patient is currently on [place], Neurontin, Robaxin Patient denies any side effects of the medication(s), denies excessive drowsiness or sleepiness, denies suicidal ideation and reports that the current pain medication is helping to control the pain and improve activities of daily living. Patient denies any motor or sensory deficits. Patient denies any fever or night sweats, denies any change in the bowel movements or urination. Physical Examination: -Constitutional: Cooperative. Not in acute distress . - Neurologic: Cranial nerve II to XII intact. No focal neurological deficits. - Psychatric: Alert & oriented x 3. Matching mood & appropriate affect. Judgment and insight intact. - Musculoskeletal: Cervical spine: Muscle bulk/ tone/ strength in the bilateral upper extremities normal Vertebral body tenderness to palpation over Spurling test positive Distraction test positive Facet loading test positive TTP Thoracic spine Muscle bulk / tone/ strength in the bilateral paraspinal muscles normal Vertebral body tender to palpation over Facet loading test positive TTP Lumbar spine: Motor bulk/ tone/ strength lower extremities , thigh and legs : 5/5 Deep tendon reflexes : Normal Knee Jerk. Normal Ankle Jerk . Vertebral body tenderness to palpation over L4 Lumbar Facet Loading Test positive Straight Leg Raise: positive at 30 degrees right side/ left side Gaenslen's Test positive Sacral spine : Severe tenderness over the Sacroiliac joint: right side / left side Range of motion: Flexion of the lumbar spine <60 degrees Range of motion: Extension of the lumbar spine <20 degrees Gaenslen's Test positive right side / left side Jeimy test: positive right side / left side Thigh Thrust Test positive right side / left side Sacral Thrust Test positive right side / left side Assessment and plan: Chronic LBP secondary to lumbar DDD, spondylosis with facet arthropathy without myelopathy Recommendation of GINO L4-L5 #2. May need a series of injections for optimal pain relief. Risks, benefits of procedure discussed and pt verbalized understanding. Protocol for discontinuation/ continuation of medications martín procedure discussed. All questions answered. I have spent less than 30 minutes on patient care today. Dr George was available by phone for the evaluation of this patient. The time was used to review the medical records including relevant urine studies and Prescription history (MAPs), review of the available imaging, evaluation and examination of the patient, coordination of care with the medical staff and if applicable referring physicians, as well as creation of the medical record PQRS Narrative: Smoking Status Current every day smoker Hx Alcohol Use (MH) Yes: SOCIAL Home Medications: Ambulatory Orders Omeprazole 40 mg PO DAILY 06/17/15 Pravastatin Sodium 40 mg PO DAILY 06/17/15 Bictegrav/Emtricit/Tenofov Ala [Biktarvy 50-200-25 mg Tablet] 1 each PO DAILY 01/04/21 Gabapentin [Neurontin] 400 mg PO BID 01/04/21 HYDROcodone/APAP 5-325MG [[place] 5-325] 1 tab PO TID PRN 01/04/21 Propranolol [Inderal] 40 mg PO BID 01/04/21 tadalafiL [Alyq] 20 mg PO DAILY 01/04/21 methocarbamoL [Robaxin] 500 mg PO BID PRN 7 Days #14 tab 09/26/21 Controlled Substance Measures - Controlled Substance Measures Is patient prescribed a controlled substance at discharge?: No
== END ==
LOC: PNWHC3 13:30
PROVIDERS: ATTEND Specialist
DX: M51.36 Other intervertebral disc degeneration, lumbar region (principal); M47.816 Spondylosis without myelopathy or radiculopathy, lumbar region; G89.29 Other chronic pain; F17.200 Nicotine dependence, unspecified, uncomplicated; Z88.0 Allergy status to penicillin
CPT/HCPCS: 99211

== ENCOUNTER → 2023-01-27 | Outpatient (CLI) | payer MEDICARE, BC ==
--- NOTE | 2023-01-27 14:36 | P.PAINPG ---
PQRS Measure Charge Sheet Comment: A 52 yr old male with a history of severe and chronic LBP secondary to lumbar DDD and spondylosis with facet arthropathy without myelopathy presents today for evaluation s/p GINO L4-L5 #2. Pt states he experienced 0 % pain relief s/p procedure. Pain level is provoked at 7/10 in intensity, constant, localized in the lumbar spine, stabbing in character w shooting towards the back of the BLEs. Pain is provoked by walking and over activity. Pain is alleviated with PT x 8 wks Nov 2022, heat, ice, medications, topical, physician guided home exercise regimen 5 times weekly since Nov 2022, use of a walker for ambulation, lumbar support brace, injections, repositioning and rest. Oswestry axial pain score of 25. Interventional pain procedures completed include GINO L4-L5 x2 Patient is currently on [place], Neurontin, Robaxin Patient denies any side effects of the medication(s), denies excessive drowsiness or sleepiness, denies suicidal ideation and reports that the current pain medication is helping to control the pain and improve activities of daily living. Patient denies any motor or sensory deficits. Patient denies any fever or night sweats, denies any change in the bowel movements or urination. Physical Examination: -Constitutional: Cooperative. Not in acute distress . - Neurologic: Cranial nerve II to XII intact. No focal neurological deficits. - Psychatric: Alert & oriented x 3. Matching mood & appropriate affect. Judgment and insight intact. - Musculoskeletal: Cervical spine: Muscle bulk/ tone/ strength in the bilateral upper extremities normal Vertebral body tenderness to palpation over Spurling test positive Distraction test positive Facet loading test positive TTP Thoracic spine Muscle bulk / tone/ strength in the bilateral paraspinal muscles normal Vertebral body tender to palpation over Facet loading test positive TTP Lumbar spine: Motor bulk/ tone/ strength lower extremities , thigh and legs : 5/5 Deep tendon reflexes : Normal Knee Jerk. Normal Ankle Jerk . Vertebral body tenderness to palpation over L4 Lumbar Facet Loading Test positive over BL L4-L5, L5-S1 Straight Leg Raise: positive at 30 degrees right side/ left side Gaenslen's Test positive Sacral spine : Severe tenderness over the Sacroiliac joint: right side / left side Range of motion: Flexion of the lumbar spine <60 degrees Range of motion: Extension of the lumbar spine <20 degrees Gaenslen's Test positive right side / left side Jeimy test: positive right side / left side Thigh Thrust Test positive right side / left side Sacral Thrust Test positive right side / left side Assessment and plan: Chronic LBP secondary to lumbar DDD, spondylosis with facet arthropathy without myelopathy Recommendation of BL MBB L4-L5, L5-S1 #1. May need a series of injections, up until RFA, for optimal pain relief. Risks, benefits of procedure discussed and pt verbalized understanding. Protocol for discontinuation/ con tinuation of medications martín procedure discussed. All questions answered. I have spent less than 30 minutes on patient care today. Dr George was available by phone for the evaluation of this patient. The time was used to review the medical records including relevant urine studies and Prescription history (MAPs), review of the available imaging, evaluation and examination of the patient, coordination of care with the medical staff and if applicable referring physicians, as well as creation of the medical record PQRS Narrative: Smoking Status Current every day smoker Hx Alcohol Use (MH) Yes: SOCIAL Home Medications: Ambulatory Orders Omeprazole 40 mg PO DAILY 06/17/15 Pravastatin Sodium 40 mg PO DAILY 06/17/15 Bictegrav/Emtricit/Tenofov Ala [Biktarvy 50-200-25 mg Tablet] 1 each PO DAILY 01/04/21 Gabapentin [Neurontin] 400 mg PO BID 01/04/21 HYDROcodone/APAP 5-325MG [[place] 5-325] 1 tab PO TID PRN 01/04/21 Propranolol [Inderal] 40 mg PO BID 01/04/21 tadalafiL [Alyq] 20 mg PO DAILY 01/04/21 methocarbamoL [Robaxin] 500 mg PO BID PRN 7 Days #14 tab 09/26/21 Multivit,Calc,Min/FA/K1/Lycop [One-A-Day Men's Complete Tab] 1 each PO DAILY 12/26/22 Controlled Substance Measures - Controlled Substance Measures Is patient prescribed a controlled substance at discharge?: No
[2023-01-27 15:00] VITALS: BP 134/81; PULSE 58; RESP 16; TEMP 98.8
== END ==
LOC: PNWHC3 13:17
PROVIDERS: ATTEND Specialist
DX: M51.36 Other intervertebral disc degeneration, lumbar region (principal); M47.816 Spondylosis without myelopathy or radiculopathy, lumbar region; G89.29 Other chronic pain; F17.200 Nicotine dependence, unspecified, uncomplicated; Z88.0 Allergy status to penicillin
CPT/HCPCS: 99211

== ENCOUNTER 2023-03-04 10:36 | Day surgery (SDC) | payer MEDICARE, BC ==
[~2023-03-04 10:36] MED LIST changes: -ACETAMINOPHEN TAB 500 MG TAB PO PRN; -HEPARIN SODIUM,PORCINE/PF 5,000 UNIT/0.5 ML SYRINGE SQ PRN; +LACTATED RINGERS 1,000 ML IV SCH
[2023-03-04 13:07] VITALS: TEMP 97.6
[2023-03-04] MEDS ORDERED: ROPIVACAINE 5MG/ML 20ML VIAL ONE (14:14)
[2023-03-04] MEDS ORDERED: fentaNYL (PF) 50 MCG/ML 2 ML AMP ONE (14:14)
[2023-03-04] MEDS ORDERED: MIDAZOLAM 2 MG/2 ML VIAL ONE (14:14)
[2023-03-04] MEDS ORDERED: LACTATED RINGERS 1,000 ML IV ONE (14:40)
--- NOTE | 2023-03-04 14:44 | P.PCN ---
Description of Procedure: Preprocedure diagnosis. 1. Lumbar spondylosis with facet joint arthropathy without myelopathy. 2. Lumbar degenerative disc disease. Postprocedure diagnosis. As above. Procedure done. Bilateral diagnostic block with local anesthetics at L3, L4, L5 medial branch with fluoroscopic guidance (fluoroscopy images are available in the radiology department) target to denervate the facet joint bilateral L4 5 and L5-S1 levels. Anesthesia. moderate sedation with intravenous Versed 2 mg and fentanyl and local infiltration with local anesthetics. Blood loss. Minimal. Indication. The patient has low back pain secondary to lumbar facet joint arthropathy. Discussed the procedure and alternative and complications which includes infection, bleeding, nerve damage, aggravation of pain. Patient understands and all questions were answered. Patient iunderstands that if any pain relief occurs it will last for a few hours to a few days maximum. Procedure description. After getting consent patient was taken in the OR in prone position. Back prepped with chlorhexidine and draped in sterile fashion. After injecting 5 mL of plain 1% lidocaine subcutaneously, a 22-gauge spinal needle was introduced under tunnel vision of the fluoroscope at the junction of the superior articular process with right ala of the sacrum. With slight right oblique fluoroscope, after injecting 5 mL of plain 1% lidocaine subcutaneously, a 22-gauge spinal needle was introduced under tunnel vision of the fluoroscope at the junction of the superior articular process with right L5 transverse process, junction of the superior articular process with the right L4 transverse process. After needle position confirmation by AP and crosstable lateral view, after negative aspiration, half milliliters of 0.5% ropivacaine were injected at each point. In exactly same way, left sided injections were done at the following 3 points. Junction of the superior articular process with left ala of the sacrum, junction of the superior articular process with the left L5 transverse process, junction of the superior articular process with left L4 transverse process. Total 3 mL of 0.5% ropivacaine was injected. Spinal needles were taken out and bandages were applied. Disposition. Patient tolerated the procedure well. No complication. Discharged home in stable condition.
--- NOTE | 2023-03-04 14:57 | FL ---
EXAMINATION TYPE: FL guided pain mgmt statistic DATE OF EXAM: 03/04/2023 HISTORY: Fluoroscopy time Total dose area product (DAP) in uGy*m?, mGy*cm? (or similar): 0.99681 IMPRESSION: 1. Fluoroscopy time.
[2023-03-04 15:10] VITALS: BP 127/88; PULSE 80; RESP 17
== END 2023-03-04 15:14 | disposition home or self-care (01) ==
LOC: ORPAIN 10:36
PROVIDERS: ATTEND Pain Medicine Interventional Pain Medicine
DX: M51.36 Other intervertebral disc degeneration, lumbar region (principal); M47.816 Spondylosis without myelopathy or radiculopathy, lumbar region; Z88.0 Allergy status to penicillin
CPT/HCPCS: 64493; 64494 ×2; 99152; J2250; J3010; J2795

== ENCOUNTER → 2023-03-12 | Outpatient (CLI) | payer MEDICARE, BC ==
[2023-03-12 15:31] LABS: ALT 19 U/L (10-49); AST 22 U/L (14-35); Albumin 4.5 g/dL (3.8-4.9); Albumin/Globulin Ratio 1.41 Ratio (1.60-3.17); Alkaline Phosphatase 119 U/L (41-126); BUN/Creat Ratio 12.78 Ratio (12.00-20.00); Blood Urea Nitrogen 11.5 mg/dL (9.0-27.0); Carbon Dioxide 26.7 mmol/L (21.6-31.8); Chloride 103 mmol/L (96-109); Globulin 3.2 g/dL (1.6-3.3); Glucose 105 mg/dL (70-110); Potassium 4.6 mmol/L (3.5-5.5); Sodium 141 mmol/L (135-145); Total Bilirubin 0.3 mg/dL (0.3-1.2); Total Protein 7.7 g/dL (6.2-8.2)
[2023-03-12 15:38] LABS: HCT 46.4 % (39.6-50.0); HGB 15.9 g/dL (13.0-17.0); MCH 33.8 pg (27.0-32.0); MCHC 34.3 g/dL (32.0-37.0); MCV 98.5 FL (80.0-97.0); Mean Platelet Volume 10.7 FL (9.5-12.2); NRBC Per 100 WBC 0 X 10*3/uL (0.00-0.01); Platelet Count 251 X 10*3/uL (140-440); RBC 4.71 X 10*6/uL (4.40-5.60); RDW 12.5 % (11.5-14.5); WBC 8.54 X 10*3/uL (4.50-10.00)
[2023-03-13 10:25] LABS: T4/T8 Ratio (CD4:CD8) 0.6 (1.0-3.7)
== END | disposition home or self-care (01) ==
LOC: LABWHC1 03-11 13:57
PROVIDERS: ATTEND Internal Medicine Infectious Disease
DX: B20 Human immunodeficiency virus [HIV] disease (principal)
CPT/HCPCS: 36415; 80053; 85027; 86360; 87536

== ENCOUNTER → 2023-03-21 | Outpatient (CLI) | payer MEDICARE, BC | END | disposition home or self-care (01) | LOC: LABWHC1 11:27 | PROVIDERS: ATTEND Internal Medicine Infectious Disease | DX: B20 Human immunodeficiency virus [HIV] disease (principal) | CPT/HCPCS: 36415; 87536 ==

== ENCOUNTER → 2023-03-27 | Outpatient (CLI) | payer MEDICARE, BC ==
[2023-03-27 14:42] VITALS: BP 137/79; PULSE 61; RESP 16
--- NOTE | 2023-03-27 15:58 | P.PAINPG ---
Objective - Vital Signs Vital signs: Intake & Output 03/26/23 03/27/23 03/27/23 18:59 06:59 18:59 Weight 63.957 kg PQRS Measure Charge Sheet Comment: A 52 yr old wheelchair bound male with a history of severe and chronic LBP secondary to lumbar DDD and spondylosis with facet arthropathy without myelopathy presents today for evaluation s/p GINO L4-L5 #2. Pt states he experienced 80 % pain relief x 6 days s/p procedure. Pain level is provoked at 8/10 in intensity, constant, localized in the lumbar spine, predominantly axial, stabbing in character w occasional shooting towards the back of the BLEs. Pain is provoked by walking and over activity. Pain is alleviated with PT x 8 wks Nov 2022, heat, ice, medications, topical, physician guided home exercise regimen 5 times weekly since Nov 2022, use of a seated walker for ambulation, lumbar support brace, injections, repositioning and rest. Oswestry axial pain score of 23. Interventional pain procedures completed include GINO L4-L5 x2, BL MBB L3-L5 x1 Patient is currently on [place], Neurontin, Robaxin Patient denies any side effects of the medication(s), denies excessive drowsiness or sleepiness, denies suicidal ideation and reports that the current pain medication is helping to control the pain and improve activities of daily living. Patient denies any motor or sensory deficits. Patient denies any fever or night sweats, denies any change in the bowel movements or urination. Physical Examination: -Constitutional: Cooperative. Not in acute distress . - Neurologic: Cranial nerve II to XII intact. No focal neurological deficits. - Psychatric: Alert & oriented x 3. Matching mood & appropriate affect. Judgment and insight intact. - Musculoskeletal: Cervical spine: Muscle bulk/ tone/ strength in the bilateral upper extremities normal Vertebral body tenderness to palpation over Spurling test positive Distraction test positive Facet loading test positive TTP Thoracic spine Muscle bulk / tone/ strength in the bilateral paraspinal muscles normal Vertebral body tender to palpation over Facet loading test positive TTP Lumbar spine: Motor bulk/ tone/ strength lower extremities , thigh and legs : 5/5 Deep tendon reflexes : Normal Knee Jerk. Normal Ankle Jerk . Vertebral body tenderness to palpation over L4 Lumbar Facet Loading Test positive over BL L4-L5, L5-S1 Straight Leg Raise: positive at 30 degrees right side/ left side Gaenslen's Test positive Sacral spine : Severe tenderness over the Sacroiliac joint: right side / left side Range of motion: Flexion of the lumbar spine <60 degrees Range of motion: Extension of the lumbar spine <20 degrees Gaenslen's Test positive right side / left side Jeimy test: positive right side / left side Thigh Thrust Test positive right side / left side Sacral Thrust Test positive right side / left side Assessment and plan: Chronic LBP secondary to lumbar DDD, spondylosis with facet arthropathy without myelopathy Recommendation of BL MBB L4-L5, L5-S1 #2. May need a series of injections, up until RFA, for optimal pain relief. Risks, benefits of procedure discussed and pt verbalized understanding. Protocol for discontinuation/ continuation of medications martín procedure discussed. All questions answered. I have spent less than 30 minutes on patient care today. Dr George was available by phone for the evaluation of this patient. The time was used to review the medical records including relevant urine studies and Prescription history (MAPs), review of the available imaging, evaluation and examination of the patient, coordination of care with the medical staff and if applicable referring physicians, as well as creation of the medical record PQRS Narrative: Smoking Status Current every day smoker Hx Alcohol Use (MH) Yes: SOCIAL Home Medications: Ambulatory Orders Pravastatin Sodium 40 mg PO DAILY 06/17/15 Bictegrav/Emtricit/Tenofov Ala [Biktarvy 50-200-25 mg Tablet] 1 each PO DAILY 01/04/21 Gabapentin [Neurontin] 400 mg PO BID 01/04/21 HYDROcodone/APAP 5-325MG [[place] 5-325] 1 tab PO TID PRN 01/04/21 Propranolol [Inderal] 40 mg PO BID 01/04/21 Multivit,Calc,Min/FA/K1/Lycop [One-A-Day Men's Complete Tab] 1 each PO DAILY 12/26/22 Albuterol Sulfate [Albuterol Sulfate Hfa] 2 puff INHALATION BID PRN 02/25/23 Cholecalciferol [Vitamin D3 (125 Mcg = 5000 Iu)] 125 mcg PO WEEKLY 02/25/23 Escitalopram Oxalate [Lexapro] 10 mg PO DAILY 02/25/23 Loperamide HCl [Imodium A-D] 2 mg PO BID PRN 02/25/23 Omeprazole [PriLOSEC] 10 mg PO BID 02/25/23 tadalafiL 5 mg PO DAILY 02/25/23 Controlled Substance Measures - Controlled Substance Measures Is patient prescribed a controlled substance at discharge?: No
== END ==
LOC: PNWHC3 13:55
PROVIDERS: ATTEND Specialist
DX: M51.37 Other intervertebral disc degeneration, lumbosacral region (principal); M47.817 Spondylosis without myelopathy or radiculopathy, lumbosacral region; G89.29 Other chronic pain; F17.200 Nicotine dependence, unspecified, uncomplicated; Z88.0 Allergy status to penicillin
CPT/HCPCS: 99211

== ENCOUNTER → 2023-04-04 | Day surgery (SDC) | payer MEDICARE, BC ==
[~2023-04-04] MED LIST changes: +LACTATED RINGERS 1,000 ML IV ONE; +MIDAZOLAM 2 MG/2 ML VIAL ONE; +ROPIVACAINE 5MG/ML 20ML VIAL ONE; +fentaNYL (PF) 50 MCG/ML 2 ML AMP ONE; +methylPREDNISolone ACETATE 40 MG/ML 1 ML VIAL ONE
[2023-04-04 09:55] VITALS: TEMP 97.6
--- NOTE | 2023-04-04 11:04 | P.PCN ---
Date of Procedure: 04/04/23 Procedure(s) Performed: PREOPERATIVE DIAGNOSIS : 1- Lumbar spondylosis with Facet Arthropathy without myelopathy . 2- Lumber degenerative disc disease POSTOPERATIVE DIAGNOSIS: 1- Lumbar spondylosis with Facet Arthropathy without myelopathy . 2- Lumber degenerative disc disease PROCEDURE: Diagnostic bilateral L3 , L4 , and L5 medial branch block under fluoroscopy guidance(fluoroscopy images available in the radiology Department ) ( To target the facet joint between Bilateral L4-5 , and L5-S1 )# 2nd ANESTHESIA:, Monitored anesthesia care as per anesthesia department. EBL: Minimal COMPLICATION: None PROCEDURE INDICATION: Chronic low back pain secondary to Facet arthropathy unresponsive to conservative treatment. PROCEDURE DESCRIPTION: the patient was seen and identified in the preop holding area , risks and benefits and possible complications of the procedure and alternative were discussed with the patient, and the patient agreed to proceed with the procedure and signed the consent and vital signs monitored during the procedure and fluoroscopy was used to maximize the benefit and accuracy of the needle placement, and sedation was given to decrease patient a nxiety, patient was taken to the procedure room and placed in prone position vital signs monitored in the back prepped with chlorhexidine X3 then under strict sterile technique using a right oblique fluoroscopy ,the junction of the transverse process and the superior articulating process of the right L3 , L4 , and L5 vertebra which corresponding to the fluoroscopy image of the eye of the Rahul dog on the block side for the medial branches and subsequently , after local infiltration of skin and subcu tissuies with Ropivacaine 0.5 % , one mL at each level ,then 22-gauge Quincke-type needles , 3 needle was used , each one of them placed at the junction of the base of the transverse process and the superior articular process at the appropriate level, and the needle was advanced until the periosteum contacted, needle placement confirmed with AP oblique and lateral view and after appropriate needle placement confirmed, and after negative aspiration for heme and CSF and there was no paresthesia 1-1/2 mL of Ropivacaine 0.5% mixed with 20 mg Depo-Medrol , then half mL injected at each level after negative aspiration the needle subsequently removed and the same procedure repeated for the left side at left side at L3 , L4 and L5 levels. At the end of the procedure and the needles removed and a bandage applied after the skin was cleaned the cleaning solution patient taken to recovery room in stable condition and monitors in the recovery room for 20-30 minutes and discharged home in stable condition after discharge criteria met and patient will follow up with the pain clinic in 2-4 weeks
[2023-04-04 11:34] VITALS: BP 108/62; PULSE 61; RESP 14
--- NOTE | 2023-04-04 11:34 | FL ---
EXAMINATION TYPE: FL guided pain mgmt statistic Intraoperative/procedural fluoroscopic services were provided. Total fluoroscopy time is 22 seconds with a total of 4 submitted images to PACS. Please see the operative/procedural note for further details. DAP: [id number] mGym2
== END ==
LOC: ORPAIN 09:35
PROVIDERS: ATTEND Specialist
DX: M47.816 Spondylosis without myelopathy or radiculopathy, lumbar region (principal); G89.29 Other chronic pain; M51.36 Other intervertebral disc degeneration, lumbar region
CPT/HCPCS: 64493; 64494 ×2; J2250; J1030; J3010; J2795

== ENCOUNTER → 2023-04-28 | Outpatient (CLI) | payer MEDICARE, BC ==
[2023-04-28 14:18] VITALS: BP 130/78; PULSE 67; RESP 16
--- NOTE | 2023-04-28 15:04 | P.PAINPG ---
PQRS Measure Charge Sheet Comment: A 52 yr old wheelchair bound male with a history of severe and chronic LBP secondary to lumbar DDD and spondylosis with facet arthropathy without myelopathy presents today for evaluation s/p BL MBB L3-L5 #2. Pt states he experienced 100 % pain relief x 2 wks s/p procedure. Pain level is provoked at 8/10 in intensity, constant, localized in the lumbar spine, predominantly axial, stabbing in character w occasional shooting towards the back of the BLEs. Pain is provoked by walking and over activity. Pain is alleviated with PT x 8 wks Nov 2022, heat, ice, medications, topical, physician guided home exercise regimen 5 times weekly since Nov 2022, use of a seated walker for ambulation, lumbar support brace, injections, repositioning and rest. Oswestry axial pain score of 22. Interventional pain procedures completed include GINO L4-L5 x2, BL MBB L3-L5 x2 Patient is currently on [place], Neurontin, Robaxin Patient denies any side effects of the medication(s), denies excessive drowsiness or sleepiness, denies suicidal ideation and reports that the current pain medication is helping to control the pain and improve activities of daily living. Patient denies any motor or sensory deficits. Patient denies any fever or night sweats, denies any change in the bowel movements or urination. Physical Examination: -Constitutional: Cooperative. Not in acute distress . - Neurologic: Cranial nerve II to XII intact. No focal neurological deficits. - Psychatric: Alert & oriented x 3. Matching mood & appropriate affect. Judgment and insight intact. - Musculoskeletal: Cervical spine: Muscle bulk/ tone/ strength in the bilateral upper extremities normal Vertebral body tenderness to palpation over Spurling test positive Distraction test positive Facet loading test positive TTP Thoracic spine Muscle bulk / tone/ strength in the bilateral paraspinal muscles normal Vertebral body tender to palpation over Facet loading test positive TTP Lumbar spine: Motor bulk/ tone/ strength lower extremities , thigh and legs : 5/5 Deep tendon reflexes : Normal Knee Jerk. Normal Ankle Jerk . Vertebral body tenderness to palpation over L4 Lumbar Facet Loading Test positive over BL L4-L5, L5-S1 Straight Leg Raise: positive at 30 degrees right side/ left side Gaenslen's Test positive Sacral spine : Severe tenderness over the Sacroiliac joint: right side / left side Range of motion: Flexion of the lumbar spine <60 degrees Range of motion: Extension of the lumbar spine <20 degrees Gaenslen's Test positive right side / left side Jeimy test: positive right side / left side Thigh Thrust Test positive right side / left side Sacral Thrust Test positive right side / left side Assessment and plan: Chronic LBP secondary to lumbar DDD, spondylosis with facet arthropathy without myelopathy Recommendation of BL RFA L4-L5, L5-S1. May need a series of injections, up until RFA, for optimal pain relief. Risks, benefits of procedure discussed and pt verbalized understanding. Protocol for discontinuation/ continuation of medications martín procedure discussed. All questions answered. I have spent less than 30 minutes on patient care today. Dr George was available by phone for the evaluation of this patient. The time was used to review the medical records including relevant urine studies and Prescription history (MAPs), review of the available imaging, evaluation and examination of the patient, coordination of care with the medical staff and if applicable referring physicians, as well as creation of the medical record PQRS Narrative: Smoking Status Current every day smoker Hx Alcohol Use (MH) Yes: SOCIAL Home Medications: Ambulatory Orders Pravastatin Sodium 40 mg PO DAILY 06/17/15 Bictegrav/Emtricit/Tenofov Ala [Biktarvy 50-200-25 mg Tablet] 1 each PO DAILY 01/04/21 Gabapentin [Neurontin] 400 mg PO BID 01/04/21 HYDROcodone/APAP 5-325MG [[place] 5-325] 1 tab PO TID PRN 01/04/21 Propranolol [Inderal] 40 mg PO BID 01/04/21 Multivit,Calc,Min/FA/K1/Lycop [One-A-Day Men's Complete Tab] 1 each PO DAILY 12/26/22 Albuterol Sulfate [Albuterol Sulfate Hfa] 2 puff INHALATION BID PRN 02/25/23 Cholecalciferol [Vitamin D3 (125 Mcg = 5000 Iu)] 125 mcg PO WEEKLY 02/25/23 Escitalopram Oxalate [Lexapro] 10 mg PO DAILY 02/25/23 Loperamide HCl [Imodium A-D] 2 mg PO BID PRN 02/25/23 Omeprazole [PriLOSEC] 10 mg PO BID 02/25/23 tadalafiL 5 mg PO DAILY 02/25/23 Controlled Substance Measures - Controlled Substance Measures Is patient prescribed a controlled substance at discharge?: No
== END ==
LOC: PNWHC3 13:48
PROVIDERS: ATTEND Specialist
DX: M51.37 Other intervertebral disc degeneration, lumbosacral region (principal); M47.817 Spondylosis without myelopathy or radiculopathy, lumbosacral region; G89.29 Other chronic pain; F17.200 Nicotine dependence, unspecified, uncomplicated; Z88.0 Allergy status to penicillin
CPT/HCPCS: 99211

== ENCOUNTER 2023-05-09 09:11 | Day surgery (SDC) | payer MEDICARE, BC ==
[2023-05-05 14:20] VITALS: BMI 24.3
[~2023-05-09 09:11] MED LIST changes: -LACTATED RINGERS 1,000 ML IV ONE; -MIDAZOLAM 2 MG/2 ML VIAL ONE; -ROPIVACAINE 5MG/ML 20ML VIAL ONE; -fentaNYL (PF) 50 MCG/ML 2 ML AMP ONE; -methylPREDNISolone ACETATE 40 MG/ML 1 ML VIAL ONE
[2023-05-09 09:42] VITALS: TEMP 97.4
[2023-05-09] MEDS ORDERED: MIDAZOLAM 2 MG/2 ML VIAL ONE (10:04)
[2023-05-09] MEDS ORDERED: fentaNYL (PF) 50 MCG/ML 2 ML AMP ONE (10:04)
[2023-05-09] MEDS ORDERED: ROPIVACAINE 5MG/ML 20ML VIAL ONE (10:07)
[2023-05-09] MEDS ORDERED: LACTATED RINGERS 1,000 ML IV ONE (10:43)
--- NOTE | 2023-05-09 10:44 | P.PCN ---
Description of Procedure: Preprocedure diagnosis. 1. Lumbar spondylosis with facet joint arthropathy without myelopathy. 2. Lumbar degenerative disc disease. Procedure diagnosis. 1. Lumbar spondylosis with facet joint arthropathy without myelopathy. Space 2. Lumbar degenerative disc disease. Procedure.Bilateral radiofrequency thermocoagulation L3, L4 and L5 medial branch, with fluoroscopic guidance (fluoroscopy images are available in the radiology department) (to Denervate the facet joint at bilateral L4 5 and L5-S1 levels) Anesthesia. Monitored anesthesia care as per anesthesia department, Moderate sedation with intravenous Versed 2 mg and fentanyl 100 g and local infiltration with ropivacaine 0.5%. In OR, continuous pulse ox, blood pressure, EKG and verbal communication was maintained. EBL minimal. Procedure indication. The patient with low back pain secondary to lumbar facet arthropathy who he had more than 50% relief of her pain with previous diagnostic lumbar medial branch block with local anesthetics. Discussed with the patient about the procedure, alternative treatment, possible complications which may include infection, bleeding, nerve damage, aggravation of pain, all of which could be permanent. Patient understands, all questions were answered. Patient signed consent and agreed to proceed with the procedure. Procedure description/technique. After getting consent, patient was taken to the OR and in prone position. The lumbar area was prepped and draped in the usual sterile fashion. After injecting 5 mL of plain 1% lidocaine subcutaneously, a 18-gauge 100 mm radiofrequency cannula with a 10 mm active tip was introduced under tunnel vision of the fluoroscope at the junction of the superior articular process with RIGHT ala of the sacrum. With slight oblique fluoroscope, after injecting 5 mL of plain 1% lidocaine subcutaneously, a 18- gauge 100 mm radiofrequency cannula with a 10 mm active tip was introduced under tunnel vision of the fluoroscope at the junction of the superior articular process with L5 transverse process and junction of the superior articular process with the L4 transverse process Each site then underwent sensory testing with 50 Hz and 0-1 V and motor testing at 2.5 Hz and 0-3 V with local stimulation but no radicular symptoms down the leg. Thereafter each sites underwent radiofrequency thermocoagulation at 80C for 90 seconds after injecting 1 mL of preservative-free 0.5% ropivacaine. Repeat radiofrequency ablation was done at each points after rotating the needle 180 with same setting . In exactly same way, LEFT sided RFA were done at the following 3 points. Junction of the superior articular process with left ala of the sacrum, junction of the superior articular process with the left L5 transverse process, junction of the superior articular process with left L4 transverse process after needle position confirmation by AP, oblique, lateral view of the fluoroscope, negative CSF negative blood negative paresthesia, sensory and motor stimulations followed by injection of 1 mL of 0.5% ropivacaine. Radiofrequency ablation settings where same as the other side, and second lesion was done after rotating the needle 180. RF needles were taken out. At the end of the procedure the skin was cleansed and Band-Aids were applied. Disposition . Patient tolerated the procedure well. No complication. She was placed in supine position and transferred to the recovery area in stable condition for observation and was discharged home from recovery room after meeting discharge criteria. Discharge instructions given to the patient by the staff. The patient were examined prior to discharge the patient will schedule a follow-up in the clinic in 2-4 weeks.
[2023-05-09 11:12] VITALS: BP 106/58; PULSE 67; RESP 16
--- NOTE | 2023-05-09 12:20 | FL ---
EXAMINATION TYPE: FL guided pain mgmt statistic Intraoperative/procedural fluoroscopic services were provided. Total fluoroscopy time is 34.3 seconds with a total of 5 submitted images to PACS. Please s ee the operative/procedural note for further details. DAP: [id number] mGym2
== END 2023-05-09 11:16 | disposition home or self-care (01) ==
LOC: ORPAIN 09:11
PROVIDERS: ATTEND Pain Medicine Interventional Pain Medicine
DX: M51.36 Other intervertebral disc degeneration, lumbar region (principal); M47.816 Spondylosis without myelopathy or radiculopathy, lumbar region; E78.5 Hyperlipidemia, unspecified; J45.909 Unspecified asthma, uncomplicated; F17.200 Nicotine dependence, unspecified, uncomplicated; F41.9 Anxiety disorder, unspecified; G62.9 Polyneuropathy, unspecified; K21.9 Gastro-esophageal reflux disease without esophagitis; B20 Human immunodeficiency virus [HIV] disease; Z79.51 Long term (current) use of inhaled steroids; Z79.899 Other long term (current) drug therapy; Z88.0 Allergy status to penicillin
CPT/HCPCS: 64635; 64636 ×2; 99152; 99153; J2250; J3010; J2795

== ENCOUNTER → 2023-05-29 | Outpatient (CLI) | payer MEDICARE, BC ==
--- NOTE | 2023-05-29 14:35 | P.PAINPG ---
PQRS Measure Charge Sheet Comment: A 52 yr old male with a history of severe and chronic LBP secondary to lumbar DDD and spondylosis with facet arthropathy without myelopathy presents today for evaluation s/p BL RFA L3-L5. Pt states he experienced 90 % pain relief s/p procedure. Pain level is provoked at 6 /10 in intensity, constant, localized in the lumbar spine, predominantly axial, stabbing in character w occasional shooting towards the back of the BLEs. Pain is provoked by walking and over activity. Pain is alleviated with PT x 8 wks Nov 2022, heat, ice, medications, topical, physician guided home exercise regimen 5 times weekly since Nov 2022, use of a seated walker for ambulation, lumbar support brace, injections, repositioning and rest. Oswestry axial pain score of 19. Interventional pain procedures completed include GINO L4-L5 x2, BL MBB L3-L5 (May 2023) Patient is currently on [place], Neurontin, Robaxin Patient denies any side effects of the medication(s), denies excessive drowsiness or sleepiness, denies suicidal ideation and reports that the current pain medication is helping to control the pain and improve activities of daily living. Patient denies any motor or sensory deficits. Patient denies any fever or night sweats, denies any change in the bowel movements or urination. Physical Examination: -Constitutional: Cooperative. Not in acute distress . - Neurologic: Cranial nerve II to XII intact. No focal neurological deficits. - Psychatric: Alert & oriented x 3. Matching mood & appropriate affect. Judgment and insight intact. - Musculoskeletal: Cervical spine: Muscle bulk/ tone/ strength in the bilateral upper extremities normal Vertebral body tenderness to palpation over Spurling test positive Distraction test positive Facet loading test positive TTP Thoracic spine Muscle bulk / tone/ strength in the bilateral paraspinal muscles normal Vertebral body tender to palpation over Facet loading test positive TTP Lumbar spine: Motor bulk/ tone/ strength lower extremities , thigh and legs : 5/5 Deep tendon reflexes : Normal Knee Jerk. Normal Ankle Jerk . Vertebral body tenderness to palpation over L4 Lumbar Facet Loading Test positive BL L5-S1 Straight Leg Raise: positive at 30 degrees right side/ left side Gaenslen's Test positive Sacral spine : Severe tenderness over the Sacroiliac joint: right side / left side Range of motion: Flexion of the lumbar spine <60 degrees Range of motion: Extension of the lumbar spine <20 degrees Gaenslen's Test positive right side / left side Jeimy test: positive right side / left side Thigh Thrust Test positive right side / left side Sacral Thrust Test positive right side / left side Assessment and plan: Chronic LBP secondary to lumbar DDD, spondylosis with facet arthropathy without myelopathy Recommendation of BL iliolumbar ligament injection #1. May need a series of injections for optimal pain relief. Risks, benefits of procedure discussed and patient verbalized understanding. Protocol for discontinuation/continuation of medications surrounding procedure discussed. All questions answered. I have spent less than 30 minutes on patient care today. Dr George was available by phone for the evaluation of this patient. The time was used to review the medical records including relevant urine studies and Prescription history (MAPs), review of the available imaging, evaluation and examination of the patient, coordination of care with the medical staff and if applicable referring physicians, as well as creation of the medical record PQRS Narrative: Smoking Status Current every day smoker Hx Alcohol Use (MH) Yes: SOCIAL Home Medications: Ambulatory Orders Pravastatin Sodium 40 mg PO DAILY 06/17/15 Bictegrav/Emtricit/Tenofov Ala [Biktarvy 50-200-25 mg Tablet] 1 each PO DAILY 01/04/21 Gabapentin [Neurontin] 400 mg PO BID 01/04/21 HYDROcodone/APAP 5-325MG [[place] 5-325] 1 tab PO TID PRN 01/04/21 Propranolol [Inderal] 40 mg PO BID 01/04/21 Multivit,Calc,Min/FA/K1/Lycop [One-A-Day Men's Complete Tab] 1 each PO DAILY 12/26/22 Albuterol Sulfate [Albuterol Sulfate Hfa] 2 puff INHALATION BID PRN 02/25/23 Cholecalciferol [Vitamin D3 (125 Mcg = 5000 Iu)] 125 mcg PO HURD 02/25/23 Escitalopram Oxalate [Lexapro] 10 mg PO DAILY 02/25/23 Loperamide HCl [Imodium A-D] 2 mg PO BID PRN 02/25/23 Omeprazole [PriLOSEC] 10 mg PO BID 02/25/23 tadalafiL 5 mg PO DAILY 02/25/23 Controlled Substance Measures - Controlled Substance Measures Is patient prescribed a controlled substance at discharge?: No
[2023-05-29 14:53] VITALS: BP 147/88; PULSE 102; RESP 15; TEMP 98.5
== END ==
LOC: PNWHC3 13:50
PROVIDERS: ATTEND Specialist
DX: M51.37 Other intervertebral disc degeneration, lumbosacral region (principal); M47.817 Spondylosis without myelopathy or radiculopathy, lumbosacral region; G89.29 Other chronic pain; F17.200 Nicotine dependence, unspecified, uncomplicated; Z88.0 Allergy status to penicillin
CPT/HCPCS: 99211

== ENCOUNTER 2023-06-12 08:59 | Day surgery (SDC) | payer MEDICARE, BC ==
[2023-06-09 15:26] VITALS: BMI 24.3
[2023-06-12] MEDS ORDERED: ROPIVACAINE 5MG/ML 20ML VIAL ONE (09:37)
[2023-06-12] MEDS ORDERED: methylPREDNISolone ACETATE 80 MG/ML 1 ML VIAL ONE (09:37)
[2023-06-12 09:40] VITALS: TEMP 97.3
--- NOTE | 2023-06-12 09:53 | P.PCN ---
Date of Procedure: 06/12/23 Procedure(s) Performed: Procedure= bilateral iliolumbar ligament steroid injection under fluoroscopy guidance (fluoroscopy image stored on file in the radiology Department ) Preoperative diagnosis= 1- bilateral iliolumbar ligament neuralgia 2-lumbar degenerative disc disease 3-lumbar spondylosis with facet arthropathy Postoperative diagnosis=Same as preop Diagnosis . Complication = none Condition= stable Anesthesia= local anesthesia with ropivacaine 0.5% 4 ml only Indication for the procedure= patient complaining of low back pain , examination was positive for severe tenderness over the iliolumbar ligament bilaterally and patient diagnosed with iliolumbar ligament neuralgia, for this reason he was good candidate for iliolumbar ligament steroid injection. Description of the procedure= procedure risk and benefits discussed with the patient, including but not limited, risk of infection and bleeding, and ALLERGIC reaction to the medication and not complete pain relief and patient agreed with the preceding patient taken to the operating room, placed in prone position or standard monitors applied to the patient then after induction of anesthesia back prepped with chlorhexidine 3 times , Then under strict sterile technique, first I did the right side the which was identified under fluoroscopy guidance been local infiltration of the skin and subcu interstitial with lidocaine 1% then 22-gauge [place] Needle advanced slowly under fluoroscopy and placed in the middle of the distance between the L5 transver process and the sacral ala ,needle placement confirmed with AP and oblique and lateral view, and after appropriate needle placement confirmed and after negative aspiration, or heme , then Ropivacaine 0.5% 3 mL, and 40 mg of Depo-Medrol mixed together and injected after negative aspiration patient tolerated the procedure well without any complication. Then the exact same procedure done for the left side.
[2023-06-12 10:13] VITALS: BP 139/75
[2023-06-12 10:14] VITALS: PULSE 60; RESP 18
--- NOTE | 2023-06-12 13:03 | FL ---
EXAMINATION TYPE: FL guided pain mgmt statistic DATE OF EXAM: 06/12/2023 FLUOROSCOPY Fluoroscopy time of 34.3 seconds was used during bilateral tendon sheath injection. 2 image/s docume nt/s the procedure. DAP [id number] mGcym2.
== END 2023-06-12 10:20 | disposition home or self-care (01) ==
LOC: ORPAIN 08:59
PROVIDERS: ATTEND Anesthesiology
DX: G58.8 Other specified mononeuropathies (principal); M51.36 Other intervertebral disc degeneration, lumbar region; M47.816 Spondylosis without myelopathy or radiculopathy, lumbar region; Z88.0 Allergy status to penicillin
CPT/HCPCS: 20550; 77002; J1040; J2795

== ENCOUNTER → 2023-06-26 | Outpatient (CLI) | payer MEDICARE, BC ==
[2023-06-26 13:55] VITALS: BP 121/75; PULSE 67; RESP 16; TEMP 98.3
--- NOTE | 2023-06-26 14:49 | P.PAINPG ---
PQRS Measure Charge Sheet Comment: A 53 yr old male with a history of severe and chronic LBP secondary to lumbar DDD and spondylosis with facet arthropathy without myelopathy presents today for evaluation s/p BL iliolumbar ligament injection. Pt states he experienced 80 % pain relief x 2 wks s/p procedure. Pain level is provoked at 6 /10 in intensity, constant, localized in the lumbar spine, predominantly axial, stabbing in character w occasional shooting towards the back of the BLEs. Pain is provoked by walking and over activity. Pain is alleviated with PT x 8 wks Nov 2022, heat, ice, medications, topical, physician guided home exercise regimen 5 times weekly since Nov 2022, use of a seated walker for ambulation, lumbar support brace, injections, repositioning and rest. Oswestry axial pain score of 18. Interventional pain procedures completed include GINO L4-L5 x2, BL MBB L3-L5 (May 2023), BL Iliolumbar x1 (Jun 2023) Patient is currently on [place], Neurontin, Robaxin Patient denies any side effects of the medication(s), denies excessive drowsiness or sleepiness, denies suicidal ideation and reports that the current pain medication is helping to control the pain and improve activities of daily living. Patient denies any motor or sensory deficits. Patient denies any fever or night sweats, denies any change in the bowel movements or urination. Physical Examination: -Constitutional: Cooperative. Not in acute distress . - Neurologic: Cranial nerve II to XII intact. No focal neurological deficits. - Psychatric: Alert & oriented x 3. Matching mood & appropriate affect. Judgment and insight intact. - Musculoskeletal: Cervical spine: Muscle bulk/ tone/ strength in the bilateral upper extremities normal Vertebral body tenderness to palpation over Spurling test positive Distraction test positive Facet loading test positive TTP Thoracic spine Muscle bulk / tone/ strength in the bilateral paraspinal muscles normal Vertebral body tender to palpation over Facet loading test positive TTP Lumbar spine: Motor bulk/ tone/ strength lower extremities , thigh and legs : 5/5 Deep tendon reflexes : Normal Knee Jerk. Normal Ankle Jerk . Vertebral body tenderness to palpation over L4 Lumbar Facet Loading Test positive BL L5-S1 Straight Leg Raise: positive at 30 degrees right side/ left side Gaenslen's Test positive Sacral spine : Severe tenderness over the Sacroiliac joint: right side / left side Range of motion: Flexion of the lumbar spine <60 degrees Range of motion: Extension of the lumbar spine <20 degrees Gaenslen's Test positive right side / left side Jeimy test: positive right side / left side Thigh Thrust Test positive right side / left side Sacral Thrust Test positive right side / left side Assessment and plan: Chronic LBP secondary to lumbar DDD, spondylosis with facet arthropathy without myelopathy Recommendation of BL iliolumbar ligament #2. May need a series of injections for optimal pain relief. Risks, benefits of procedure discussed and patient verbalized understanding. Protocol for discontinuation/continuation of medications surrounding procedure discussed. All questions answered. I have spent less than 30 minutes on patient care today. Dr George was available by phone for the evaluation of this patient. The time was used to review the medical records including relevant urine studies and Prescription history (MAPs), review of the available imaging, evaluation and examination of the patient, coordination of care with the medical staff and if applicable referring physicians, as well as creation of the medical record PQRS Narrative: Smoking Status Current every day smoker Hx Alcohol Use (MH) Yes: SOCIAL Home Medications: Ambulatory Orders Pravastatin Sodium 40 mg PO DAILY 06/17/15 Bictegrav/Emtricit/Tenofov Ala [Biktarvy 50-200-25 mg Tablet] 1 each PO DAILY 01/04/21 Gabapentin [Neurontin] 400 mg PO BID 01/04/21 HYDROcodone/APAP 5-325MG [[place] 5-325] 1 tab PO TID PRN 01/04/21 Propranolol [Inderal] 40 mg PO BID 01/04/21 Multivit,Calc,Min/FA/K1/Lycop [One-A-Day Men's Complete Tab] 1 each PO DAILY 12/26/22 Albuterol Sulfate [Albuterol Sulfate Hfa] 2 puff INHALATION BID PRN 02/25/23 Cholecalciferol [Vitamin D3 (125 Mcg = 5000 Iu)] 125 mcg PO HURD 02/25/23 Escitalopram Oxalate [Lexapro] 10 mg PO DAILY 02/25/23 Loperamide HCl [Imodium A-D] 2 mg PO BID PRN 02/25/23 Omeprazole [PriLOSEC] 10 mg PO BID 02/25/23 tadalafiL 5 mg PO DAILY 02/25/23 Controlled Substance Measures - Controlled Substance Measures Is patient prescribed a controlled substance at discharge?: No
== END ==
LOC: PNWHC3 12:44
PROVIDERS: ATTEND Specialist
DX: M51.37 Other intervertebral disc degeneration, lumbosacral region (principal); M47.817 Spondylosis without myelopathy or radiculopathy, lumbosacral region; G89.29 Other chronic pain; F17.200 Nicotine dependence, unspecified, uncomplicated; Z88.0 Allergy status to penicillin
CPT/HCPCS: 99211

== ENCOUNTER 2023-07-15 12:24 | Day surgery (SDC) | payer MEDICARE, BC ==
[2023-07-10 13:41] VITALS: BMI 23.8
[2023-07-15 13:51] VITALS: TEMP 97.6
[2023-07-15] MEDS ORDERED: ROPIVACAINE 5MG/ML 20ML VIAL ONE (13:59)
[2023-07-15] MEDS ORDERED: methylPREDNISolone ACETATE 40 MG/ML 1 ML VIAL ONE ×2 (13:59)
--- NOTE | 2023-07-15 14:06 | P.PCN ---
Date of Procedure: 07/15/23 Procedure(s) Performed: Procedure= bilateral iliolumbar ligament steroid injection under fluoroscopy guidance (fluoroscopy image stored on file in the radiology Department ) Preoperative diagnosis= 1- bilateral iliolumbar ligament neuralgia 2-lumbar degenerative disc disease 3-lumbar spondylosis with facet arthropathy Postoperative diagnosis=Same as preop Diagnosis . Complication = none Condition= stable Anesthesia= local anesthesia with ropivacaine 0.5% 4 ml only Indication for the procedure= patient complaining of low back pain , examination was positive for severe tenderness over the iliolumbar ligament bilaterally and patient diagnosed with iliolumbar ligament neuralgia, for this reason he was good candidate for iliolumbar ligament steroid injection. Description of the procedure= procedure risk and benefits discussed with the patient, including but not limited, risk of infection and bleeding, and ALLERGIC reaction to the medication and not complete pain relief and patient agreed with the preceding patient taken to the operating room, placed in prone position or standard monitors applied to the patient then after induction of anesthesia back prepped with chlorhexidine 3 times , Then under strict sterile technique, first I did the right side the which was identified under fluoroscopy guidance been local infiltration of the skin and subcu interstitial with lidocaine 1% then 25-gauge Quincke Needle advanced slowly under fluoroscopy and placed in the middle of the distance between the L5 transver process and the sacral ala ,needle placement confirmed with AP and oblique and lateral view, and after appropriate needle placement confirmed and after negative aspiration, or heme , then Ropivacaine 0.5% 3 mL, and 40 mg of Depo-Medrol mixed together and injected after negative aspiration patient tolerated the procedure well without any complication. Then the exact same procedure done for the left side.
--- NOTE | 2023-07-15 14:15 | FL ---
EXAMINATION TYPE: FL guided pain mgmt statistic DATE OF EXAM: 07/15/2023 HISTORY: Fluoroscopy time Total dose area product (DAP) in uGy*m?, mGy*cm? (or similar): 0.91414 IMPRESSION: 1. Fluoroscopy time.
[2023-07-15 14:32] VITALS: BP 134/78; PULSE 78; RESP 18
== END 2023-07-15 14:31 | disposition home or self-care (01) ==
LOC: ORPAIN 12:24
PROVIDERS: ATTEND Specialist
DX: M51.36 Other intervertebral disc degeneration, lumbar region (principal); M47.816 Spondylosis without myelopathy or radiculopathy, lumbar region; G58.8 Other specified mononeuropathies
CPT/HCPCS: 20550; J2795; J1010; 64425

== ENCOUNTER → 2023-08-04 | Outpatient (CLI) | payer MEDICARE, BC ==
--- NOTE | 2023-08-04 14:14 | P.PAINPG ---
PQRS Measure Charge Sheet Comment: A 53 yr old male with a history of severe and chronic LBP secondary to lumbar DDD and spondylosis with facet arthropathy without myelopathy presents today for evaluation s/p BL iliolumbar ligament injection #2. Pt states he experienced 100 % pain relief x 3 wks s/p procedure. Pain level is provoked at 2 /10 in intensity, constant, localized in the lumbar spine, predominantly axial, stabbing in character w occasional shooting towards the back of the BLEs. Pain is provoked by walking and over activity. Pain is alleviated with PT x 8 wks Nov 2022, heat, ice, medications, topical, physician guided home exercise regimen 5 times weekly since Nov 2022, use of a seated walker for ambulation, lumbar support brace, injections, repositioning and rest. Oswestry axial pain score of 12. Interventional pain procedures completed include GINO L4-L5 x2, BL RFA L3-L5 (May 2023), BL Iliolumbar x2 (Jun 2023, Jul 2023) Patient is currently on [place], Neurontin, Robaxin Patient denies any side effects of the medication(s), denies excessive drowsiness or sleepiness, denies suicidal ideation and reports that the current pain medication is helping to control the pain and improve activities of daily living. Patient denies any motor or sensory deficits. Patient denies any fever or night sweats, denies any change in the bowel movements or urination. Physical Examination: -Constitutional: Cooperative. Not in acute distress . - Neurologic: Cranial nerve II to XII intact. No focal neurological deficits. - Psychatric: Alert & oriented x 3. Matching mood & appropriate affect. Judgment and insight intact. - Musculoskeletal: Cervical spine: Muscle bulk/ tone/ strength in the bilateral upper extremities normal Vertebral body tenderness to palpation over Spurling test positive Distraction test positive Facet loading test positive TTP Thoracic spine Muscle bulk / tone/ strength in the bilateral paraspinal muscles normal Vertebral body tender to palpation over Facet loading test positive TTP Lumbar spine: Motor bulk/ tone/ strength lower extremities , thigh and legs : 5/5 Deep tendon reflexes : Normal Knee Jerk. Normal Ankle Jerk . Vertebral body tenderness to palpation over L4 Lumbar Facet Loading Test positive BL L5-S1 Straight Leg Raise: positive at 30 degrees right side/ left side Gaenslen's Test positive Sacral spine : Severe tenderness over the Sacroiliac joint: right side / left side Range of motion: Flexion of the lumbar spine <60 degrees Range of motion: Extension of the lumbar spine <20 degrees Gaenslen's Test positive right side / left side Jeimy test: positive right side / left side Thigh Thrust Test positive right side / left side Sacral Thrust Test positive right side / left side Assessment and plan: Chronic LBP secondary to lumbar DDD, spondylosis with facet arthropathy without myelopathy Will manage residual pain and may RTC on an as needed basis. All questions answered. I have spent less than 30 minutes on patient care today. Dr George was available by phone for the evaluation of this patient. The time was used to review the medical records including relevant urine studies and Prescription history (MAPs), review of the available imaging, evaluation and examination of the patient, coordination of care with the medical staff and if applicable referring physicians, as well as creation of the medical record PQRS Narrative: Smoking Status Current every day smoker Hx Alcohol Use (MH) Yes: SOCIAL Home Medications: Ambulatory Orders Pravastatin Sodium 40 mg PO QAM 06/17/15 Bictegrav/Emtricit/Tenofov Ala [Biktarvy 50-200-25 mg Tablet] 1 each PO QAM 01/04/21 Gabapentin [Neurontin] 400 mg PO BID 01/04/21 HYDROcodone/APAP 5-325MG [[place] 5-325] 1 tab PO TID PRN 01/04/21 Propranolol [Inderal] 40 mg PO BID 01/04/21 Multivit,Calc,Min/FA/K1/Lycop [One-A-Day Men's Complete Tab] 1 each PO QAM 12/26/22 Albuterol Sulfate [Albuterol Sulfate Hfa] 2 puff INHALATION BID PRN 02/25/23 Cholecalciferol [Vitamin D3 (125 Mcg = 5000 Iu)] 125 mcg PO HURD 02/25/23 Escitalopram Oxalate [Lexapro] 10 mg PO QAM 02/25/23 Loperamide HCl [Imodium A-D] 2 mg PO BID PRN 02/25/23 Omeprazole [PriLOSEC] 10 mg PO BID 02/25/23 tadalafiL 5 mg PO QAM 02/25/23 Acetaminophen [Tylenol] 650 mg PO Q4H PRN 07/10/23 Controlled Substance Measures - Controlled Substance Measures Is patient prescribed a controlled substance at discharge?: No
[2023-08-04 14:35] VITALS: BP 150/82; PULSE 82; RESP 15; TEMP 98.5
== END ==
LOC: PNWHC3 13:49
PROVIDERS: ATTEND Specialist
DX: M51.36 Other intervertebral disc degeneration, lumbar region (principal); M47.816 Spondylosis without myelopathy or radiculopathy, lumbar region; G89.29 Other chronic pain; F17.200 Nicotine dependence, unspecified, uncomplicated; Z88.0 Allergy status to penicillin
CPT/HCPCS: 99211

== ENCOUNTER → 2024-08-11 | Outpatient (CLI) | payer MEDICARE, BC ==
--- NOTE | 2024-08-11 15:46 | CT ---
EXAMINATION TYPE: CT abdomen pelvis w con DATE OF EXAM: 08/11/2024 COMPARISON: 08/16/2020 CLINICAL INDICATION: Male, 54 years old with history of R10.9 UNSPECIFIED ABDOMINAL PAIN; PHH, Abdomi nal pelvic pain x 2 months TECHNIQUE: Performed with Oral Contrast and with IV Contrast, patient injected with 100 mL of Isovue 300. CT DLP: 726.[address] CTDI: mGy Automated exposure control for dose reduction was used. FINDINGS: The lung bases are clear. The gallbladder is normal without distention, wall thickening, pericholecystic fluid or gallstones. T here is no biliary ductal dilatation. There is no focal mass or organomegaly involving the liver, pancreas, spleen or adrenal glands. There is moderate liver steatosis. There is no solid renal mass or hydronephrosis and there is homogeneous contrast enhancement of the r enal parenchyma. The caliber the abdominal aorta is normal is no retroperitoneal adenopathy or hemorr lani. The bowel loops are normal in caliber and there is no evidence of dilatation or obstruction. No infla mmatory changes are identified in the bowel wall or mesentery. There is no free intraperitoneal air or fluid. No pelvic mass, free fluid, abscess or adenopathy. There are bilateral hip prostheses otherwise the osseous structures are intact. IMPRESSION: 1. Moderate liver steatosis. 2. No acute changes within the abdomen or pelvis. [facility], , 08/11/2024 3:44 PM
== END | disposition home or self-care (01) ==
LOC: RADCTMAIN 13:15
PROVIDERS: ATTEND Internal Medicine
DX: K76.0 Fatty (change of) liver, not elsewhere classified (principal)
CPT/HCPCS: 74177; Q9967

== ENCOUNTER → 2024-09-15 | Outpatient (CLI) | payer MEDICARE, BC ==
--- NOTE | 2024-09-15 15:56 | US ---
EXAMINATION TYPE: US venous doppler duplex LE LT DATE OF EXAM: 09/15/2024 3:38 PM COMPARISON: NONE CLINICAL INDICATION: Male, 54 years old with history of M79.662 PAIN IN LLE R22.42 SWELLING LLE; and, Pain x 2 weeks. Patient denies any injury or other relevant history TECHNIQUE: The lower extremity deep venous system is examined utilizing real time linear array sonog semaj with graded compression, color doppler sonography, and spectral doppler. SIDE PERFORMED: Left FINDINGS: VESSELS IMAGED: Common Femoral Vein Deep Femoral Vein Greater Saphenous Vein * Femoral Vein Popliteal Vein Small Saphenous Vein * Proximal Calf Veins (* superficial vessels) Lymph nodes noted within groin Left Leg: Negative for DVT, Color Doppler imaging shows patency of the vessels. Spectral waveforms a re within normal limits. IMPRESSION: No ultrasound evidence for deep venous thrombosis. [facility], , 09/15/2024 3:53 PM
== END | disposition home or self-care (01) ==
LOC: RADUSWWP 15:23
PROVIDERS: ATTEND Internal Medicine
DX: M79.662 Pain in left lower leg (principal); R22.42 Localized swelling, mass and lump, left lower limb

== ENCOUNTER 2024-10-19 07:18 | Day surgery (SDC) | payer MEDICARE, BC ==
[2024-10-18 08:47] VITALS: BMI 25.4
[2024-10-19] MEDS: IV FLUID CONTINUATION 1,000 ML IV ONE (08:10)
[2024-10-19 08:11] VITALS: TEMP 97
[2024-10-19] MEDS: LACTATED RINGERS 1,000 ML IV SCH (08:18)
[2024-10-19] MEDS ORDERED: PROPOFOL 10 MG/ML 20 ML VIAL IV ONE (08:27)
[2024-10-19] MEDS: ONDANSETRON 4 MG/2 ML VIAL IVP STA (08:27)
--- NOTE | 2024-10-19 08:48 | P.PCN ---
Date of Procedure: 10/19/24 Procedure(s) Performed: PREOPERATIVE DIAGNOSIS: GERD, rectal bleeding POSTOPERATIVE DIAGNOSIS: Duodenitis, gastritis, perianal rash with suspected anal warts, hypertrophied anal papilla PROCEDURE: 1. EGD with biopsy 2. Colonoscopy with snare polypectomy ANESTHESIA: [facility] SURGEON: Oleksandr De La Cruz M.D. SPECIMENS: Duodenum, antrum, anal papilla ENDOSCOPIC PROCEDURE: The patient was on the endoscopy table in the left decubitus position. The Olympus gastroscope was inserted into the oropharynx and passed under direct visualization to the region of the third portion of the duodenum. From that point the scope was slowly withdrawn inspecting all surfaces carefully. There was mild duodenitis in the first portion of the duodenum. A biopsy was taken. No ulcerations or neoplastic changes were seen. The pylorus was widely patent. The stomach was carefully inspected. There was mild gastritis present. A biopsy of the antrum took place to rule out H. pylori. Retroflexion revealed a normal hiatus. The esophagus was then carefully examined. There were no neoplastic inflammatory or polypoid lesions throughout the visualized esophagus. The patient was kept on the endoscopy table in the left decubitus position. The Olympus colonoscope was inserted into the anus and passed under direct visualization to the base of the cecum. The appendiceal orifice was visualized. From that point the scope was slowly withdrawn inspecting all surfaces carefully. There were no neoplastic inflammatory or polypoid lesions throughout the cecum, ascending, transverse, descending, sigmoid and rectum. There was no visible diverticulosis noted. The patient's prep was somewhat suboptimal with some retained solid and liquid stool throughout. At the anal canal there was noted to be hypertrophied mucosa. There was 1 area that was prominent and excised using the snare with cautery technique labeled hypertrophied anal papilla. The perianal tissues revealed plaque-like pale-colored nodularity. Suspect some of this was anal warts. I suspect the hypertrophied papilla was the same process. No biopsy of the perianal skin itself took place. The patient was taken to the recovery room in stable condition per anesthesia guidelines. RECOMMENDATIONS: Await biopsy results. Patient may require further perianal skin biopsy depending on the pathologic findings from the anal papilla.
[2024-10-19 09:13] VITALS: BP 118/73; PULSE 60; RESP 16
== END 2024-10-19 09:43 | disposition home or self-care (01) ==
LOC: ORWHC2ENDO 07:18
PROVIDERS: ATTEND Surgery
DX: K62.89 Other specified diseases of anus and rectum (principal); K29.50 Unspecified chronic gastritis without bleeding; K29.80 Duodenitis without bleeding; K21.9 Gastro-esophageal reflux disease without esophagitis; I10 Essential (primary) hypertension; E78.5 Hyperlipidemia, unspecified; B20 Human immunodeficiency virus [HIV] disease; G62.9 Polyneuropathy, unspecified; J45.909 Unspecified asthma, uncomplicated; F41.9 Anxiety disorder, unspecified; F17.210 Nicotine dependence, cigarettes, uncomplicated; Z79.624 Long term (current) use of inhibitors of nucleotide synthesis; Z79.899 Other long term (current) drug therapy; Z88.0 Allergy status to penicillin
CPT/HCPCS: 88305; 45385; 43239; J2405; J2704

== ENCOUNTER → 2024-10-26 | Outpatient (CLI) | payer MEDICARE, BC ==
--- NOTE | 2024-10-26 13:04 | MR ---
EXAMINATION TYPE: MR lumbar spine wo con DATE OF EXAM: 10/26/2024 12:19 PM COMPARISON: 04/18/2022 CLINICAL INDICATION: Male, 54 years old with history of M54.50 LOW BACK PAIN, Low back pain into diallo lower extremities TECHNIQUE: Multiplanar, multisequence images of the lumbar spine were acquired without IV contrast. FINDINGS: Vertebral body heights are preserved. Overall alignment is maintained. Mild/moderate degenerative disc disease throughout with desiccated and bulging discs. Mild narrowing at some levels. There is an edematous Modic type I endplate change anteriorly at L4-L5 towards the right posteriorly at L3-L4. Moderate facet arthropathy mid to lower lumbar spine. Conus medullaris is normal. There is a congenital spinal canal narrowing mid to lower lumbar spine with seneca-cay[place] AP canal dimension of 1.1 cm. Further narrowing of the thecal sac in the mid and lower lumbar spine by prominent epidural fat accum ulation. Combination of bulging disc and dorsal epidural fat contributes to mild thecal sac compression at L3- L4. Larger disc bulge along with circumferential epidural fat causes a more moderate thecal sac compressi on at L4-L5 and moderate to severe at L5-S1. Findings appears slightly worsened compared to 2022. On the right, changes results in moderate neuroforaminal stenoses at L3-L4 and L4-L5. On the left, changes result in moderate neural foraminal stenosis at L5-S1 and mild at L4-L5. No prevertebral or paravertebral soft tissue abnormalities seen. IMPRESSION: 1. 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 There is superimposed mild to moderate degenerative disc disease as well as prominent epidural f at. Some edematous Modic type I endplate changes anteriorly at L4-L5 and towards the right at L3-L4 i s new. 2. Moderate facet arthropathy mid to lower lumbar spine. No vertebral compression collapse or malalig nment. 3. The overall changes to contribute to moderate to severe thecal sac compression at L5-S1, moderate at L4-L5, and mild at L3-L4. Changes have worsened from 2022. 4. Moderate right-sided neuroforaminal stenosis at L3-L4 and L4-L5 and on the left at L5-S1. [facility], Workstation: [id number], 10/26/2024 1:02 PM
== END | disposition home or self-care (01) ==
LOC: RADMRIMAIN 11:48
PROVIDERS: ATTEND Internal Medicine
DX: M48.061 Spinal stenosis, lumbar region without neurogenic claudication (principal); M51.360 Other intervertebral disc degeneration, lumbar region with discogenic back pain only; M47.816 Spondylosis without myelopathy or radiculopathy, lumbar region; R60.0 Localized edema
CPT/HCPCS: 72148